=== PATIENT | female | born 1975 | race African-American/Black ===

== ENCOUNTER 2018-12-18 08:29 | Inpatient (IN) | payer OTHER ==
[2018-12-18 09:04] VITALS: BMI 19.6
--- NOTE | 2018-12-18 09:22 | HP ---
CIWA Score Nausea/Vomitin-No Nausea/No Vomiting Muscle Tremors: 1-None Visible, but [place] Anxiety: 0-No Anxiety, at Ease Agitation: 0-Normal Activity Paroxysmal Sweats: No Perspiration Orientation: 0-Oriented Tacttile Disturbances: 0-None Auditory Disturbances: 0-None Visual Disturbances: 0-None Headache: 0-None Present CIWA-Ar Total Score: 1 - Admission Criteria OASAS Guidelines: Admission for Medically Managed Detox: Requires at least one of the followin. CIWA greater than 12 2. Seizures within the past 24 hours 3. Delirium tremens within the past 24 hours 4. Hallucinations within the past 24 hours 5. Acute intervention needed for co occurring medical disorder 6. Acute intervention needed for co occurring psychiatric disorder 7. Severe withdrawal that cannot be handled at a lower level of care (continued vomiting, continued diarrhea, abnormal vital signs) requiring intravenous medication and/or fluids 8. Admitting History and Physical - Admission Chief Complaint: " I want to stop using marijuana and crack and alcohol." History of Present Illness: 43 year old black female with cocaine/crack dependence, marijuana use disorder, and alcohol use disorder. She smokes crack daily $100 every day, last use yesterday. Alcohol she does not use daily, only along with crack sometimes. She denies blackouts or withdrawal seizures. She last drank yesterday evening. Marijuana she uses twice weekly, about 1 blunt per episode, last used yesterday evening. PMH: HIV Disease, DM Med: Biktarvy daily, Metformin 1 gm BID, Basaglar insulin 25 units qsh, AdmeLOG U-100 Insurlin, 5 unit before meals. Amoxicillin she took only for while hospitalized but lost it yesterday. Naproxen 250mg BID. Nexplanon implantable contraceptive. All: Sulfur Drugs - Rash Psych: Anxiety Disorder, Depression on Lexapro, trazodone 50mg qhs, Abilify 5 mg daily. She is homeless and in retirement system. She has poor coping skills and needs structure and help. She has co-morbid disorders that complicate her recovery. She wants to be admitted for rehab. Limitations to Obtaining History: No Limitations - Past Medical History Psych: Yes: Depression, Schizophrenia - Advance Directives Advance Directives: No: Living Will, Health Care Proxy, DNR - Alcohol/Substance Use Hx Alcohol Use: No History of Substance Use: reports: Cocaine, Marijuana Date of Last Use: 12/17/18 - Social History Usual Living Arrangement: Yes: Alone Do you think of yourself as: Straight/Heterosexual ADL: Independent History of Recent Travel: No Admission [facility] Chief Complaint: " I want to stop using marijuana and crack." Allergies/Adverse Reactions: Allergies Allergy/AdvReac Type Severity Reaction Status Date / Time Sulfa (Sulfonamide Allergy Verified 12/18/18 08:55 Antibiotics) History of Present Illness: 43 year old black female with cocaine/crack dependence, marijuana use disorder, and alcohol use disorder. She smokes crack daily $100 every day, last use yesterday. Alcohol she does not use daily, only along with crack sometimes. She denies blackouts or withdrawal seizures. She last drank yesterday evening. Marijuana she uses twice weekly, about 1 blunt per episode, last used yesterday evening. PMH: HIV Disease, DM Med: Biktarvy daily, Metformin 1 gm BID, Basaglar insulin 25 units qsh, AdmeLOG U-100 Insurlin, 5 unit before meals. Amoxicillin she took only for while hospitalized but lost it yesterday. Naproxen 250mg BID. Nexplanon implantable contraceptive. All: Sulfur Drugs - Rash Psych: Anxiety Disorder, Depression on Lexapro, trazodone 50mg qhs, Abilify 5 mg daily. She is homeless and in retirement system. She has poor coping skills and needs structure and help. She has co-morbid disorders that complicate her recovery. She wants to be admitted for rehab. Exam Limitations: No Limitations - Ebola screening Have you traveled outside of the country in the last 21 days: No Have you had contact with anyone from an Ebola affected area: No Have you been sick,other than usual withdrawal symptoms: No Do you have a fever: No - Review of Systems Constitutional: Unexplained wgt Loss EENT: reports: No Symptoms Reported Respiratory: reports: No Symptoms reported Cardiac: reports: No Symptoms Reported GI: reports: No Symptoms Reported : reports: No Symptoms Reported Musculoskeletal: reports: No Symptoms Reported Integumentary: reports: No Symptoms Reported Neuro: reports: No Symptoms reported Endocrine: reports: No Symptoms Reported Hematology: reports: No Symptoms Reported Psychiatric: reports: No Sypmtoms Reported Other Systems: Reviewed and Negative Patient History - Patient Medical History Hx Anemia: No Hx Asthma: No Hx Chronic Obstructive Pulmonary Disease (COPD): No Hx Cancer: No Hx Cardiac Disorders: No Hx Congestive Heart Failure: No Hx Hypertension: No Hx Hypercholesterolemia: No Hx Pacemaker: No HX Cerebrovascular Accident: No Hx Seizures: No Hx Dementia: No Hx Diabetes: Yes Hx Gastrointestinal Disorders: No Hx Liver Disease: No Hx Genitourinary Disorders: No Hx Sexually Transmitted Disorders: No Hx Renal Disease (ESRD): No Hx Thyroid Disease: No Hx Human Immunodeficiency Virus (HIV): Yes Hx Hepatitis C: No Hx Depression: Yes Hx Bipolar Disorder: Yes Hx Schizophrenia: Yes - Patient Surgical History Past Surgical History: No - PPD History Previous Implant?: Yes Documented Results: Negative w/o proof Implanted On Prior R Admission?: No Date: 12/23/17 Results: unknown PPD to be Administered?: Yes - Reproductive History Patient is a Female of Child Bearing Age (11 -55 yrs old): Yes Patient : No - Smoking Cessation Smoking history: Current every day smoker Have you smoked in the past 12 months: Yes Aproximately how many cigarettes per day: 8 Hx Chewing Tobacco Use: Yes Initiated information on smoking cessation: Yes 'Breaking Loose' booklet given: 12/18/18 - Substances abused Alcohol Substance route: Oral Frequency: Daily Amount used: 2 cans of beer Age of first use: 12 Date of last use: 12/17/18 Crack Substance route: Smoking Frequency: Daily Amount used: $100 Age of first use: 24 Date of last use: 12/17/18 Marijuana/Hashish Substance route: Oral Frequency: Daily Amount used: $10 Age of first use: 16 Date of last use: 12/17/18 Admission Physical Exam BHS - Vital Signs Vital Signs: Vital Signs - 24 hr 12/18/18 09:00 Temperature 98.1 F Pulse Rate 107 H Respiratory 20 Rate Blood Pressure 125/88 - Physical General Appearance: Yes: No Apparent Distress HEENTM: Yes: EOMI, Hearing grossly Normal, Normal ENT Inspection, Normocephalic , Normal Voice, YOSEF, Pharynx Normal, Tm's normal Respiratory: Yes: Chest Non-Tender, Lungs Clear, Normal Breath Sounds Neck: Yes: No masses,lesions,Nodules, Supple, Trachea in good position Breast: Yes: Breast Exam Deferred Cardiology: Yes: Regular Rhythm, Regular Rate, S1, S2 Abdominal: Yes: Normal Bowel Sounds, Non Tender, Flat, Soft Genitourinary: Yes: Within Normal Limits Back: Yes: Normal Inspection Musculoskeletal: Yes: full range of Motion, Gait Steady, Pelvis Stable Extremities: Yes: Normal Capillary Refill, Normal Inspection, Normal Range of Motion, Non-Tender Neurological: Yes: street engineer II-XII NML intact, Fully Oriented, Alert, Motor Strength 5/5, Normal Mood/Affect, Normal Response Integumentary: Yes: Normal Color, Warm Lymphatic: Yes: Within Normal Limits - Diagnostic (1) Cocaine use disorder Current Visit: Yes Status: Acute (2) Cannabis use disorder, mild, abuse Current Visit: Yes Status: Acute (3) Insulin dependent diabetes mellitus Current Visit: Yes Status: Acute (4) HIV (human immunodeficiency virus infection) Current Visit: Yes Status: Acute (5) Depression Current Visit: Yes Status: Acute (6) Schizophrenia Current Visit: Yes Status: Acute (7) Abscess Current Visit: Yes Status: Acute Cleared for Admission S - Detox or Rehab [facility] Level of Care: Medically Supervised Claeared for Rehab Admission: Yes Screened but not Admitted - Documentation of Visit Screened but not Admitted: No Breathalyzer - Breathalyzer Breathalyzer: 0 Vital Signs - Vital Signs Vital signs refused: No Inpatient Rehab Admission - Rehab Decision to Admit Inpatient rehab admission?: Yes - Initial Determination Are CD services needed?: Yes Free of communicable disease: Yes Not in need of hospitalization: Yes - Rehab Admission Criteria Previous failed treatment: Yes Poor recovery environment: Yes Comorbidities: Yes Lacks judgement: Yes Patient is meeting Inpatient Rehab admission criteria:: Yes
[2018-12-18] MEDS ORDERED: MAGNESIUM HYDROX 2400MG/30ML ORAL SUSPENSION 30 ML CUP PO PRN (09:42)
[2018-12-18] MEDS ORDERED: MENTHOL/PHENOL 1 EACH UD MM PRN (09:42)
[2018-12-18] MEDS ORDERED: P-EPHED 60MG/TRIPROLIDI 2.5MG TABLET PO PRN (09:42)
[2018-12-18] MEDS ORDERED: guaiFENesin 200 MG/10 ML 10 ML UNIT-DOSE CUPS PO PRN (09:42)
[2018-12-18] MEDS ORDERED: IBUPROFEN 400 MG TABLET (FP) PO PRN (09:42)
[2018-12-18] MEDS ORDERED: MAGNESIUM CITRATE 300 ML BOTTLE PO PRN (09:42)
[2018-12-18] MEDS ORDERED: LOPERAMIDE HCL 2 MG CAPSULE PO PRN (09:42)
[2018-12-18] MEDS ORDERED: PATIENT'S OWN MEDICATION (NON-FORMULARY) (Metformin Hcl [Glucophage] 1,000 MG) PO SCH (10:00)
[2018-12-18] MEDS ORDERED: TUBERCULIN PPD 5 TU/0.1ML VIAL ID ONE (11:34)
[2018-12-18] MEDS: ARIPiprazole 5 MG TABLET (FP) PO SCH (11:39)
[2018-12-18] MEDS: PRENATAL VITAMINS W/ FOLIC ACID TABLET (FP) PO SCH (11:39)
[2018-12-18] MEDS: AMOXICILLIN 500 MG CAPSULE (FP) PO SCH ×2 (11:39→21:24)
[2018-12-18] MEDS: BICTEGRAV/EMTRICIT/TENOFOV (BIKTARVY) 50-200-25 MG TABLET PO SCH (11:39)
[2018-12-18] MEDS: HYDROCORTISONE 2.5% LOTION - 1 BOTTLE TP SCH ×2 (11:40→21:31)
[2018-12-18] MEDS: NICOTINE 7 MG/24 HOURS TOPICAL PATCH TD SCH (11:40)
[2018-12-18] MEDS: NAPROXEN 250 MG TABLET (FP) PO PRN (11:40)
[2018-12-18 11:57] LABS: HEMATOCRIT 41.4 % (32.4-45.2); HEMOGLOBIN 13.3 GM/dL (10.7-15.3); MCH 28.7 pg (25.7-33.7); MCHC 32.2 g/dl (32.0-36.0); MEAN CELL VOLUME 89.2 fl (80-96); PLATELET COUNT 341 K/MM3 (134-434); RBC 4.64 M/mm3 (3.60-5.2); RDW 13.7 % (11.6-15.6); WHITE BLOOD COUNT 7.2 K/mm3 (4.0-10.0)
[2018-12-18] MEDS: metFORMIN HCL 500 MG TABLET (FP) PO SCH ×2 (12:00→17:42)
[2018-12-18 12:21] LABS: ALBUMIN 3.2 g/dl (3.4-5.0); BILIRUBIN,TOTAL 0.5 mg/dL (0.2-1); BLOOD UREA NITROGEN 16.3 mg/dL (7-18); CREATININE 1.2 mg/dL (0.55-1.3); POTASSIUM 4.2 mmol/L (3.5-5.1); TOT PROT 7.6 g/dl (6.4-8.2)
[2018-12-18] MEDS ORDERED: INSULIN (NOVOLOG) ASPART 100 UNITS/ML 10ML VIAL SQ ONE (13:15)
[2018-12-18] MEDS ORDERED: metFORMIN HCL 500 MG TABLET (FP) PO ONE (13:15)
[2018-12-18] MEDS ORDERED: INSULIN REGULAR HUMAN 100 UNITS/ML *VIAL SQ ONE (13:15)
[2018-12-18] MEDS ORDERED: PT OWN MED DRAWER 7, Y5N ONE ×2 (14:01→21:27)
[2018-12-18] MEDS: INSULIN (NOVOLOG) ASPART 100 UNITS/ML 10ML VIAL SQ SCH (17:43)
[2018-12-18] MEDS: THIAMINE HCL 100 MG TABLET (FP) PO SCH (21:24)
[2018-12-18] MEDS ORDERED: traZODone HCL 50 MG TABLET (FP) PO SCH (22:00)
[2018-12-18] MEDS: INSULIN (LEVEMIR) 100 UNITS/ML UNITS SQ SCH (22:07)
[2018-12-19] MEDS: metFORMIN HCL 500 MG TABLET (FP) PO SCH ×2 (07:02→16:44)
[2018-12-19] MEDS: ACETAMINOPHEN 325 MG TABLET (FP) PO PRN (07:03)
[2018-12-19] MEDS: INSULIN (NOVOLOG) ASPART 100 UNITS/ML 10ML VIAL SQ SCH ×3 (08:39→16:48)
[2018-12-19] MEDS ORDERED: PT OWN MED DRAWER 7, Y5N ONE ×2 (09:24→10:53)
[2018-12-19] MEDS: BICTEGRAV/EMTRICIT/TENOFOV (BIKTARVY) 50-200-25 MG TABLET PO SCH (09:43)
[2018-12-19] MEDS: ARIPiprazole 5 MG TABLET (FP) PO SCH (09:43)
[2018-12-19] MEDS: AMOXICILLIN 500 MG CAPSULE (FP) PO SCH ×2 (09:43→21:28)
[2018-12-19] MEDS: NICOTINE 7 MG/24 HOURS TOPICAL PATCH TD SCH (09:44)
[2018-12-19] MEDS: PRENATAL VITAMINS W/ FOLIC ACID TABLET (FP) PO SCH (09:44)
[2018-12-19] MEDS: HYDROCORTISONE 2.5% LOTION - 1 BOTTLE TP SCH ×2 (09:45→21:30)
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
[2018-12-19 11:49] LABS: EPI CELLS 10.9 /HPF (0-5/HPF); HYALINE CASTS 14 /lpf (0-8); URINE APPEARANCE CLOUDY; URINE BACTERIA 99.6 /hpf (NEGATIVE); URINE BILIRUBIN NEGATIVE (NEGATIVE); URINE COLOR DK YELLOW; URINE GLUCOSE (UA) 2+ (NEGATIVE); URINE KETONE TRACE (NEGATIVE); URINE LEUK ESTERASE NEGATIVE (NEGATIVE); URINE NITRITE NEGATIVE (NEGATIVE); URINE PROTEIN 2+ (NEGATIVE); URINE RBC 1 /hpf (0-4); URINE WBC 3 /hpf (0-5)
[2018-12-19] MEDS ORDERED: INSULIN (NOVOLOG) ASPART 100 UNITS/ML 10ML VIAL ONE (12:03)
[2018-12-19] MEDS: NAPROXEN 250 MG TABLET (FP) PO PRN (15:27)
[2018-12-19] MEDS: THIAMINE HCL 100 MG TABLET (FP) PO SCH (21:28)
[2018-12-19] MEDS: INSULIN (LEVEMIR) 100 UNITS/ML UNITS SQ SCH (21:29)
[2018-12-19] MEDS: traZODone HCL 100 MG TABLET (FP) PO SCH (21:30)
[2018-12-20] MEDS: metFORMIN HCL 500 MG TABLET (FP) PO SCH ×2 (06:34→16:38)
[2018-12-20] MEDS: INSULIN (NOVOLOG) ASPART 100 UNITS/ML 10ML VIAL SQ SCH ×3 (07:41→16:38)
[2018-12-20] MEDS ORDERED: PT OWN MED DRAWER 7, Y5N ONE (08:53)
[2018-12-20] MEDS: AMOXICILLIN 500 MG CAPSULE (FP) PO SCH ×2 (09:16→21:36)
[2018-12-20] MEDS: NICOTINE 7 MG/24 HOURS TOPICAL PATCH TD SCH (09:16)
[2018-12-20] MEDS: BICTEGRAV/EMTRICIT/TENOFOV (BIKTARVY) 50-200-25 MG TABLET PO SCH (09:16)
[2018-12-20] MEDS: ARIPiprazole 5 MG TABLET (FP) PO SCH (09:16)
[2018-12-20] MEDS: PRENATAL VITAMINS W/ FOLIC ACID TABLET (FP) PO SCH (09:16)
[2018-12-20] MEDS: HYDROCORTISONE 2.5% LOTION - 1 BOTTLE TP SCH ×2 (09:17→21:40)
[2018-12-20] MEDS ORDERED: INSULIN (NOVOLOG) ASPART 100 UNITS/ML 10ML VIAL ONE (11:42)
[2018-12-20] MEDS: ACETAMINOPHEN 325 MG TABLET (FP) PO PRN (17:00)
[2018-12-20] MEDS: MAG HYDROX/AL HYDROX/SIMETH 30 ML UNIT-DOSE CUP PO PRN (17:01)
[2018-12-20] MEDS: THIAMINE HCL 100 MG TABLET (FP) PO SCH (21:36)
[2018-12-20] MEDS: traZODone HCL 100 MG TABLET (FP) PO SCH (21:36)
[2018-12-20] MEDS: INSULIN (LEVEMIR) 100 UNITS/ML UNITS SQ SCH (21:39)
[2018-12-20] MEDS ORDERED: INSULIN (LEVEMIR) 100 UNITS/ML UNITS SQ ONE (23:01)
[2018-12-21] MEDS: metFORMIN HCL 500 MG TABLET (FP) PO SCH ×2 (07:24→16:47)
[2018-12-21] MEDS: INSULIN (NOVOLOG) ASPART 100 UNITS/ML 10ML VIAL SQ SCH ×3 (07:25→16:49)
[2018-12-21] MEDS ORDERED: PT OWN MED DRAWER 7, Y5N ONE (08:58)
[2018-12-21] MEDS: ARIPiprazole 5 MG TABLET (FP) PO SCH (10:06)
[2018-12-21] MEDS: NICOTINE 7 MG/24 HOURS TOPICAL PATCH TD SCH (10:06)
[2018-12-21] MEDS: AMOXICILLIN 500 MG CAPSULE (FP) PO SCH ×2 (10:07→21:08)
[2018-12-21] MEDS: PRENATAL VITAMINS W/ FOLIC ACID TABLET (FP) PO SCH (10:07)
[2018-12-21] MEDS: BICTEGRAV/EMTRICIT/TENOFOV (BIKTARVY) 50-200-25 MG TABLET PO SCH (10:07)
[2018-12-21] MEDS: HYDROCORTISONE 2.5% LOTION - 1 BOTTLE TP SCH ×2 (10:08→21:08)
--- NOTE | 2018-12-21 11:27 | PN ---
[facility] Progress Note Note: Vital Signs Temperature 97.8 F 12/21/18 07:20 Pulse Rate 94 H 12/21/18 07:20 Respiratory Rate 18 12/21/18 07:20 Blood Pressure 113/72 12/21/18 07:20 O2 Sat by Pulse Oximetry (%) Laboratory Last Values WBC 7.2 K/mm3 (4.0-10.0) 12/18/18 10:00 RBC 4.64 M/mm3 (3.60-5.2) 12/18/18 10:00 Hgb 13.3 GM/dL (10.7-15.3) 12/18/18 10:00 Hct 41.4 % (32.4-45.2) 12/18/18 10:00 MCV 89.2 fl (80-96) 12/18/18 10:00 MCH 28.7 pg (25.7-33.7) 12/18/18 10:00 MCHC 32.2 g/dl (32.0-36.0) 12/18/18 10:00 RDW 13.7 % (11.6-15.6) 12/18/18 10:00 Plt Count 341 K/MM3 (134-434) 12/18/18 10:00 MPV 9.0 fl (7.5-11.1) 12/18/18 10:00 Sodium 132 mmol/L (136-145) L 12/18/18 10:00 Potassium 4.2 mmol/L (3.5-5.1) 12/18/18 10:00 Chloride 98 mmol/L (98-107) 12/18/18 10:00 Carbon Dioxide 27 mmol/L (21-32) 12/18/18 10:00 Anion Gap 7 MMOL/L (8-16) L 12/18/18 10:00 BUN 16.3 mg/dL (7-18) 12/18/18 10:00 Creatinine 1.2 mg/dL (0.55-1.3) 12/18/18 10:00 Est GFR (CKD-EPI)AfAm 64.10 12/18/18 10:00 Est GFR (CKD-EPI)NonAf 55.31 12/18/18 10:00 POC Glucometer 304 UNITS (80-120) 12/21/18 07:23 Random Glucose 515 mg/dL (74-106) H* 11/04/19 10:00 Calcium 9.0 mg/dL (8.5-10.1) 12/18/18 10:00 Total Bilirubin 0.5 mg/dL (0.2-1) 12/18/18 10:00 AST 18 U/L (15-37) 12/18/18 10:00 ALT 30 U/L (13-61) 12/18/18 10:00 Alkaline Phosphatase 109 U/L (45-117) 12/18/18 10:00 Total Protein 7.6 g/dl (6.4-8.2) 12/18/18 10:00 Albumin 3.2 g/dl (3.4-5.0) L 12/18/18 10:00 Urine Color Dk yellow 12/19/18 09:00 Urine Appearance Cloudy 12/19/18 09:00 Urine pH 6.0 (5.0-8.0) 12/19/18 09:00 Ur Specific [place] 1.044 (1.010-1.035) H 12/19/18 09:00 Urine Protein 2+ (NEGATIVE) H 12/19/18 09:00 Urine Glucose (UA) 2+ (NEGATIVE) H 12/19/18 09:00 Urine Ketones Trace (NEGATIVE) H 12/19/18 09:00 Urine Blood 3+ (NEGATIVE) H 12/19/18 09:00 Urine Nitrite Negative (NEGATIVE) 12/19/18 09:00 Urine Bilirubin Negative (NEGATIVE) 12/19/18 09:00 Urine Urobilinogen 1.0 mg/dL (0.2-1.0) 12/19/18 09:00 Ur Leukocyte Esterase Negative (NEGATIVE) 12/19/18 09:00 Urine WBC (Auto) 3 /hpf (0-5) 12/19/18 09:00 Urine RBC (Auto) 1 /hpf (0-4) 12/19/18 09:00 Urine Casts (Auto) 14 /lpf (0-8) 12/19/18 09:00 U Epithel Cells (Auto) 10.9 /HPF (0-5/HPF) 12/19/18 09:00 Urine Bacteria (Auto) 99.6 /hpf (NEGATIVE) 12/19/18 09:00 POC Urine HCG, Qual Negative 12/18/18 09:40 RPR Titer Nonreactive (NONREACTIVE) 12/18/18 10:00 labs reviewed, + hematuria, repeat u/a continue to monitor
[2018-12-21] MEDS ORDERED: INSULIN (NOVOLOG) ASPART 100 UNITS/ML 10ML VIAL ONE (11:51)
[2018-12-21 17:40] LABS: EPI CELLS 7.3 /HPF (0-5/HPF); HYALINE CASTS 3 /lpf (0-8); PH,URINE >= 9.0 (5.0-8.0); URINE APPEARANCE CLEAR; URINE BILIRUBIN NEGATIVE (NEGATIVE); URINE COLOR YELLOW; URINE GLUCOSE (UA) 2+ (NEGATIVE); URINE KETONE TRACE (NEGATIVE); URINE LEUK ESTERASE NEGATIVE (NEGATIVE); URINE NITRITE NEGATIVE (NEGATIVE); URINE PROTEIN 1+ (NEGATIVE); URINE RBC 3 /hpf (0-4); URINE WBC 4 /hpf (0-5)
[2018-12-21] MEDS: MAG HYDROX/AL HYDROX/SIMETH 30 ML UNIT-DOSE CUP PO PRN (18:48)
[2018-12-21] MEDS: traZODone HCL 100 MG TABLET (FP) PO SCH (21:08)
[2018-12-21] MEDS: THIAMINE HCL 100 MG TABLET (FP) PO SCH (21:10)
[2018-12-21] MEDS: INSULIN (LEVEMIR) 100 UNITS/ML UNITS SQ SCH (21:10)
[2018-12-22] MEDS: metFORMIN HCL 500 MG TABLET (FP) PO SCH ×2 (06:27→16:59)
[2018-12-22] MEDS: INSULIN (NOVOLOG) ASPART 100 UNITS/ML 10ML VIAL SQ SCH ×3 (08:29→16:59)
[2018-12-22] MEDS ORDERED: PT OWN MED DRAWER 7, Y5N ONE ×2 (08:29→12:02)
[2018-12-22] MEDS: AMOXICILLIN 500 MG CAPSULE (FP) PO SCH ×2 (09:53→21:58)
[2018-12-22] MEDS: ARIPiprazole 5 MG TABLET (FP) PO SCH (09:53)
[2018-12-22] MEDS: HYDROCORTISONE 2.5% LOTION - 1 BOTTLE TP SCH ×2 (09:53→21:58)
[2018-12-22] MEDS: BICTEGRAV/EMTRICIT/TENOFOV (BIKTARVY) 50-200-25 MG TABLET PO SCH (09:53)
[2018-12-22] MEDS: PRENATAL VITAMINS W/ FOLIC ACID TABLET (FP) PO SCH (09:53)
[2018-12-22] MEDS: NICOTINE 7 MG/24 HOURS TOPICAL PATCH TD SCH (09:54)
--- NOTE | 2018-12-22 10:58 | PN ---
[facility] Progress Note Note: Laboratory Tests 12/18/18 12/18/18 12/18/18 09:40 10:00 10:00 WBC 7.2 RBC 4.64 Hgb 13.3 Hct 41.4 MCV 89.2 MCH 28.7 MCHC 32.2 RDW 13.7 Plt Count 341 MPV 9.0 Sodium 132 L Potassium 4.2 Chloride 98 Carbon Dioxide 27 Anion Gap 7 L BUN 16.3 Creatinine 1.2 Est GFR (CKD-EPI)AfAm 64.10 Est GFR (CKD-EPI)NonAf 55.31 POC Glucometer Random Glucose 515 H* Calcium 9.0 Total Bilirubin 0.5 AST 18 ALT 30 Alkaline Phosphatase 109 Total Protein 7.6 Albumin 3.2 L Urine Color Urine Appearance Urine pH Ur Specific [place] Urine Protein Urine Glucose (UA) Urine Ketones Urine Blood Urine Nitrite Urine Bilirubin Urine Urobilinogen Ur Leukocyte Esterase Urine WBC (Auto) Urine RBC (Auto) Urine Casts (Auto) U Epithel Cells (Auto) Urine Bacteria (Auto) POC Urine HCG, Qual Negative RPR Titer 12/18/18 12/18/18 12/18/18 10:00 10:03 11:38 WBC RBC Hgb Hct MCV MCH MCHC RDW Plt Count MPV Sodium Potassium Chloride Carbon Dioxide Anion Gap BUN Creatinine Est GFR (CKD-EPI)AfAm Est GFR (CKD-EPI)NonAf POC Glucometer 539 > 600 Random Glucose Calcium Total Bilirubin AST ALT Alkaline Phosphatase Total Protein Albumin Urine Color Urine Appearance Urine pH Ur Specific [place] Urine Protein Urine Glucose (UA) Urine Ketones Urine Blood Urine Nitrite Urine Bilirubin Urine Urobilinogen Ur Leukocyte Esterase Urine WBC (Auto) Urine RBC (Auto) Urine Casts (Auto) U Epithel Cells (Auto) Urine Bacteria (Auto) POC Urine HCG, Qual RPR Titer Nonreactive 12/18/18 12/18/18 12/19/18 16:38 21:30 07:01 WBC RBC Hgb Hct MCV MCH MCHC RDW Plt Count MPV Sodium Potassium Chloride Carbon Dioxide Anion Gap BUN Creatinine Est GFR (CKD-EPI)AfAm Est GFR (CKD-EPI)NonAf POC Glucometer 91 [phone] Random Glucose Calcium Total Bilirubin AST ALT Alkaline Phosphatase Total Protein Albumin Urine Color Urine Appearance Urine pH Ur Specific [place] Urine Protein Urine Glucose (UA) Urine Ketones Urine Blood Urine Nitrite Urine Bilirubin Urine Urobilinogen Ur Leukocyte Esterase Urine WBC (Auto) Urine RBC (Auto) Urine Casts (Auto) U Epithel Cells (Auto) Urine Bacteria (Auto) POC Urine HCG, Qual RPR Titer 12/19/18 12/19/18 12/19/18 09:00 11:55 16:43 WBC RBC Hgb Hct MCV MCH MCHC RDW Plt Count MPV Sodium Potassium Chloride Carbon Dioxide Anion Gap BUN Creatinine Est GFR (CKD-EPI)AfAm Est GFR (CKD-EPI)NonAf POC Glucometer 203 207 Random Glucose Calcium Total Bilirubin AST ALT Alkaline Phosphatase Total Protein Albumin Urine Color Dk yellow Urine Appearance Cloudy Urine pH 6.0 Ur Specific [place] 1.044 H Urine Protein 2+ H Urine Glucose (UA) 2+ H Urine Ketones Trace H Urine Blood 3+ H Urine Nitrite Negative Urine Bilirubin Negative Urine Urobilinogen 1.0 Ur Leukocyte Esterase Negative Urine WBC (Auto) 3 Urine RBC (Auto) 1 Urine Casts (Auto) 14 U Epithel Cells (Auto) 10.9 Urine Bacteria (Auto) 99.6 POC Urine HCG, Qual RPR Titer 12/19/18 12/20/18 12/20/18 21:27 06:33 11:17 WBC RBC Hgb Hct MCV MCH MCHC RDW Plt Count MPV Sodium Potassium Chloride Carbon Dioxide Anion Gap BUN Creatinine Est GFR (CKD-EPI)AfAm Est GFR (CKD-EPI)NonAf POC Glucometer 205 175 260 Random Glucose Calcium Total Bilirubin AST ALT Alkaline Phosphatase Total Protein Albumin Urine Color Urine Appearance Urine pH Ur Specific [place] Urine Protein Urine Glucose (UA) Urine Ketones Urine Blood Urine Nitrite Urine Bilirubin Urine Urobilinogen Ur Leukocyte Esterase Urine WBC (Auto) Urine RBC (Auto) Urine Casts (Auto) U Epithel Cells (Auto) Urine Bacteria (Auto) POC Urine HCG, Qual RPR Titer 12/20/18 12/20/18 12/21/18 16:37 21:38 07:23 WBC RBC Hgb Hct MCV MCH MCHC RDW Plt Count MPV Sodium Potassium Chloride Carbon Dioxide Anion Gap BUN Creatinine Est GFR (CKD-EPI)AfAm Est GFR (CKD-EPI)NonAf POC Glucometer [phone] Random Glucose Calcium Total Bilirubin AST ALT Alkaline Phosphatase Total Protein Albumin Urine Color Urine Appearance Urine pH Ur Specific [place] Urine Protein Urine Glucose (UA) Urine Ketones Urine Blood Urine Nitrite Urine Bilirubin Urine Urobilinogen Ur Leukocyte Esterase Urine WBC (Auto) Urine RBC (Auto) Urine Casts (Auto) U Epithel Cells (Auto) Urine Bacteria (Auto) POC Urine HCG, Qual RPR Titer 12/21/18 12/21/18 12/21/18 11:49 12:50 16:46 WBC RBC Hgb Hct MCV MCH MCHC RDW Plt Count MPV Sodium Potassium Chloride Carbon Dioxide Anion Gap BUN Creatinine Est GFR (CKD-EPI)AfAm Est GFR (CKD-EPI)NonAf POC Glucometer 227 249 Random Glucose Calcium Total Bilirubin AST ALT Alkaline Phosphatase Total Protein Albumin Urine Color Yellow Urine Appearance Clear Urine pH >= 9.0 H D Ur Specific [place] 1.039 H Urine Protein 1+ H Urine Glucose (UA) 2+ H Urine Ketones Trace H Urine Blood Negative Urine Nitrite Negative Urine Bilirubin Negative Urine Urobilinogen 1.0 Ur Leukocyte Esterase Negative Urine WBC (Auto) 4 Urine RBC (Auto) 3 Urine Casts (Auto) 3 U Epithel Cells (Auto) 7.3 Urine Bacteria (Auto) 191.0 POC Urine HCG, Qual RPR Titer 12/21/18 12/22/18 21:08 06:25 WBC RBC Hgb Hct MCV MCH MCHC RDW Plt Count MPV Sodium Potassium Chloride Carbon Dioxide Anion Gap BUN Creatinine Est GFR (CKD-EPI)AfAm Est GFR (CKD-EPI)NonAf POC Glucometer 172 102 Random Glucose Calcium Total Bilirubin AST ALT Alkaline Phosphatase Total Protein Albumin Urine Color Urine Appearance Urine pH Ur Specific [place] Urine Protein Urine Glucose (UA) Urine Ketones Urine Blood Urine Nitrite Urine Bilirubin Urine Urobilinogen Ur Leukocyte Esterase Urine WBC (Auto) Urine RBC (Auto) Urine Casts (Auto) U Epithel Cells (Auto) Urine Bacteria (Auto) POC Urine HCG, Qual RPR Titer Repeat UA for follow up hematuria, results negative.
[2018-12-22] MEDS ORDERED: INSULIN (NOVOLOG) ASPART 100 UNITS/ML 10ML VIAL ONE (16:50)
[2018-12-22] MEDS: hydrOXYzine PAMOATE 25 MG CAPSULE (FP) PO PRN (19:32)
[2018-12-22] MEDS: traZODone HCL 100 MG TABLET (FP) PO SCH (21:58)
[2018-12-22] MEDS: THIAMINE HCL 100 MG TABLET (FP) PO SCH (21:58)
[2018-12-22] MEDS: MELATONIN 5 MG TABLETS PO PRN (21:58)
[2018-12-22] MEDS: INSULIN (LEVEMIR) 100 UNITS/ML UNITS SQ SCH (22:24)
[2018-12-23] MEDS: metFORMIN HCL 500 MG TABLET (FP) PO SCH ×2 (07:02→16:50)
[2018-12-23] MEDS: INSULIN (NOVOLOG) ASPART 100 UNITS/ML 10ML VIAL SQ SCH ×3 (07:53→16:51)
[2018-12-23] MEDS ORDERED: PT OWN MED DRAWER 7, Y5N ONE ×3 (09:18→12:00)
[2018-12-23] MEDS: AMOXICILLIN 500 MG CAPSULE (FP) PO SCH ×2 (10:12→21:09)
[2018-12-23] MEDS: PRENATAL VITAMINS W/ FOLIC ACID TABLET (FP) PO SCH (10:12)
[2018-12-23] MEDS: NICOTINE 7 MG/24 HOURS TOPICAL PATCH TD SCH (10:12)
[2018-12-23] MEDS: BICTEGRAV/EMTRICIT/TENOFOV (BIKTARVY) 50-200-25 MG TABLET PO SCH (10:12)
[2018-12-23] MEDS: HYDROCORTISONE 2.5% LOTION - 1 BOTTLE TP SCH ×2 (10:13→21:14)
[2018-12-23] MEDS: ARIPiprazole 5 MG TABLET (FP) PO SCH (11:15)
[2018-12-23] MEDS: hydrOXYzine PAMOATE 25 MG CAPSULE (FP) PO PRN ×2 (11:58→17:53)
[2018-12-23] MEDS: THIAMINE HCL 100 MG TABLET (FP) PO SCH (21:09)
[2018-12-23] MEDS: traZODone HCL 100 MG TABLET (FP) PO SCH (21:09)
[2018-12-23] MEDS: INSULIN (LEVEMIR) 100 UNITS/ML UNITS SQ SCH (21:10)
[2018-12-23] MEDS: MELATONIN 5 MG TABLETS PO PRN (21:13)
[2018-12-24] MEDS: metFORMIN HCL 500 MG TABLET (FP) PO SCH ×2 (06:55→16:35)
[2018-12-24] MEDS: INSULIN (NOVOLOG) ASPART 100 UNITS/ML 10ML VIAL SQ SCH ×3 (07:52→16:34)
[2018-12-24] MEDS: hydrOXYzine PAMOATE 25 MG CAPSULE (FP) PO PRN ×2 (09:29→21:11)
[2018-12-24] MEDS: PRENATAL VITAMINS W/ FOLIC ACID TABLET (FP) PO SCH (09:29)
[2018-12-24] MEDS: NICOTINE 7 MG/24 HOURS TOPICAL PATCH TD SCH (09:29)
[2018-12-24] MEDS: AMOXICILLIN 500 MG CAPSULE (FP) PO SCH ×2 (09:29→21:11)
[2018-12-24] MEDS: ARIPiprazole 5 MG TABLET (FP) PO SCH (09:29)
[2018-12-24] MEDS: BICTEGRAV/EMTRICIT/TENOFOV (BIKTARVY) 50-200-25 MG TABLET PO SCH (09:30)
[2018-12-24] MEDS: HYDROCORTISONE 2.5% LOTION - 1 BOTTLE TP SCH ×2 (09:32→21:12)
[2018-12-24] MEDS ORDERED: INSULIN (NOVOLOG) ASPART 100 UNITS/ML 10ML VIAL ONE (16:33)
[2018-12-24] MEDS: THIAMINE HCL 100 MG TABLET (FP) PO SCH (21:11)
[2018-12-24] MEDS: traZODone HCL 100 MG TABLET (FP) PO SCH (21:11)
[2018-12-24] MEDS: INSULIN (LEVEMIR) 100 UNITS/ML UNITS SQ SCH (21:12)
[2018-12-24] MEDS: MAG HYDROX/AL HYDROX/SIMETH 30 ML UNIT-DOSE CUP PO PRN (21:16)
[2018-12-25] MEDS: metFORMIN HCL 500 MG TABLET (FP) PO SCH ×2 (06:58→16:45)
[2018-12-25] MEDS: INSULIN (NOVOLOG) ASPART 100 UNITS/ML 10ML VIAL SQ SCH ×3 (07:48→16:47)
[2018-12-25] MEDS ORDERED: INSULIN (NOVOLOG) ASPART 100 UNITS/ML 10ML VIAL ONE (07:50)
[2018-12-25] MEDS ORDERED: PT OWN MED DRAWER 7, Y5N ONE (09:08)
[2018-12-25] MEDS: PRENATAL VITAMINS W/ FOLIC ACID TABLET (FP) PO SCH (09:37)
[2018-12-25] MEDS: BICTEGRAV/EMTRICIT/TENOFOV (BIKTARVY) 50-200-25 MG TABLET PO SCH (09:37)
[2018-12-25] MEDS: ARIPiprazole 5 MG TABLET (FP) PO SCH (09:37)
[2018-12-25] MEDS: HYDROCORTISONE 2.5% LOTION - 1 BOTTLE TP SCH ×2 (09:39→21:11)
[2018-12-25] MEDS: NICOTINE 7 MG/24 HOURS TOPICAL PATCH TD SCH (10:08)
[2018-12-25] MEDS ORDERED: NICOTINE POLACRILEX 2 MG GUM BUC PRN (12:38)
--- NOTE | 2018-12-25 12:45 | PN ---
[facility] Progress Note Note: Pt c/o Heartburn and takes Nexium at home per nurse report. Also requesting psych re-evaluation for medication review/Anxiety. Pt requesting nicotine gum. C /o hard stool and wants stool softener. Vital Signs - 24 hr 12/25/18 12/25/18 12/25/18 00:30 03:30 07:33 Temperature 97.6 F Pulse Rate 93 H Respiratory 17 18 18 Rate Blood Pressure 109/68 Laboratory Tests 12/18/18 12/18/18 12/18/18 09:40 10:00 10:00 WBC 7.2 RBC 4.64 Hgb 13.3 Hct 41.4 MCV 89.2 MCH 28.7 MCHC 32.2 RDW 13.7 Plt Count 341 MPV 9.0 Sodium 132 L Potassium 4.2 Chloride 98 Carbon Dioxide 27 Anion Gap 7 L BUN 16.3 Creatinine 1.2 Est GFR (CKD-EPI)AfAm 64.10 Est GFR (CKD-EPI)NonAf 55.31 POC Glucometer Random Glucose 515 H* Calcium 9.0 Total Bilirubin 0.5 AST 18 ALT 30 Alkaline Phosphatase 109 Total Protein 7.6 Albumin 3.2 L Urine Color Urine Appearance Urine pH Ur Specific [place] Urine Protein Urine Glucose (UA) Urine Ketones Urine Blood Urine Nitrite Urine Bilirubin Urine Urobilinogen Ur Leukocyte Esterase Urine WBC (Auto) Urine RBC (Auto) Urine Casts (Auto) U Epithel Cells (Auto) Urine Bacteria (Auto) POC Urine HCG, Qual Negative RPR Titer 12/18/18 12/18/18 12/18/18 10:00 10:03 11:38 WBC RBC Hgb Hct MCV MCH MCHC RDW Plt Count MPV Sodium Potassium Chloride Carbon Dioxide Anion Gap BUN Creatinine Est GFR (CKD-EPI)AfAm Est GFR (CKD-EPI)NonAf POC Glucometer 539 > 600 Random Glucose Calcium Total Bilirubin AST ALT Alkaline Phosphatase Total Protein Albumin Urine Color Urine Appearance Urine pH Ur Specific [place] Urine Protein Urine Glucose (UA) Urine Ketones Urine Blood Urine Nitrite Urine Bilirubin Urine Urobilinogen Ur Leukocyte Esterase Urine WBC (Auto) Urine RBC (Auto) Urine Casts (Auto) U Epithel Cells (Auto) Urine Bacteria (Auto) POC Urine HCG, Qual RPR Titer Nonreactive 12/18/18 12/18/18 12/19/18 16:38 21:30 07:01 WBC RBC Hgb Hct MCV MCH MCHC RDW Plt Count MPV Sodium Potassium Chloride Carbon Dioxide Anion Gap BUN Creatinine Est GFR (CKD-EPI)AfAm Est GFR (CKD-EPI)NonAf POC Glucometer 91 [phone] Random Glucose Calcium Total Bilirubin AST ALT Alkaline Phosphatase Total Protein Albumin Urine Color Urine Appearance Urine pH Ur Specific [place] Urine Protein Urine Glucose (UA) Urine Ketones Urine Blood Urine Nitrite Urine Bilirubin Urine Urobilinogen Ur Leukocyte Esterase Urine WBC (Auto) Urine RBC (Auto) Urine Casts (Auto) U Epithel Cells (Auto) Urine Bacteria (Auto) POC Urine HCG, Qual RPR Titer 12/19/18 12/19/18 12/19/18 09:00 11:55 16:43 WBC RBC Hgb Hct MCV MCH MCHC RDW Plt Count MPV Sodium Potassium Chloride Carbon Dioxide Anion Gap BUN Creatinine Est GFR (CKD-EPI)AfAm Est GFR (CKD-EPI)NonAf POC Glucometer 203 207 Random Glucose Calcium Total Bilirubin AST ALT Alkaline Phosphatase Total Protein Albumin Urine Color Dk yellow Urine Appearance Cloudy Urine pH 6.0 Ur Specific [place] 1.044 H Urine Protein 2+ H Urine Glucose (UA) 2+ H Urine Ketones Trace H Urine Blood 3+ H Urine Nitrite Negative Urine Bilirubin Negative Urine Urobilinogen 1.0 Ur Leukocyte Esterase Negative Urine WBC (Auto) 3 Urine RBC (Auto) 1 Urine Casts (Auto) 14 U Epithel Cells (Auto) 10.9 Urine Bacteria (Auto) 99.6 POC Urine HCG, Qual RPR Titer 12/19/18 12/20/18 12/20/18 21:27 06:33 11:17 WBC RBC Hgb Hct MCV MCH MCHC RDW Plt Count MPV Sodium Potassium Chloride Carbon Dioxide Anion Gap BUN Creatinine Est GFR (CKD-EPI)AfAm Est GFR (CKD-EPI)NonAf POC Glucometer [phone] Random Glucose Calcium Total Bilirubin AST ALT Alkaline Phosphatase Total Protein Albumin Urine Color Urine Appearance Urine pH Ur Specific [place] Urine Protein Urine Glucose (UA) Urine Ketones Urine Blood Urine Nitrite Urine Bilirubin Urine Urobilinogen Ur Leukocyte Esterase Urine WBC (Auto) Urine RBC (Auto) Urine Casts (Auto) U Epithel Cells (Auto) Urine Bacteria (Auto) POC Urine HCG, Qual RPR Titer 12/20/18 12/20/18 12/21/18 16:37 21:38 07:23 WBC RBC Hgb Hct MCV MCH MCHC RDW Plt Count MPV Sodium Potassium Chloride Carbon Dioxide Anion Gap BUN Creatinine Est GFR (CKD-EPI)AfAm Est GFR (CKD-EPI)NonAf POC Glucometer [phone] Random Glucose Calcium Total Bilirubin AST ALT Alkaline Phosphatase Total Protein Albumin Urine Color Urine Appearance Urine pH Ur Specific [place] Urine Protein Urine Glucose (UA) Urine Ketones Urine Blood Urine Nitrite Urine Bilirubin Urine Urobilinogen Ur Leukocyte Esterase Urine WBC (Auto) Urine RBC (Auto) Urine Casts (Auto) U Epithel Cells (Auto) Urine Bacteria (Auto) POC Urine HCG, Qual RPR Titer 12/21/18 12/21/18 12/21/18 11:49 12:50 16:46 WBC RBC Hgb Hct MCV MCH MCHC RDW Plt Count MPV Sodium Potassium Chloride Carbon Dioxide Anion Gap BUN Creatinine Est GFR (CKD-EPI)AfAm Est GFR (CKD-EPI)NonAf POC Glucometer 227 249 Random Glucose Calcium Total Bilirubin AST ALT Alkaline Phosphatase Total Protein Albumin Urine Color Yellow Urine Appearance Clear Urine pH >= 9.0 H D Ur Specific [place] 1.039 H Urine Protein 1+ H Urine Glucose (UA) 2+ H Urine Ketones Trace H Urine Blood Negative Urine Nitrite Negative Urine Bilirubin Negative Urine Urobilinogen 1.0 Ur Leukocyte Esterase Negative Urine WBC (Auto) 4 Urine RBC (Auto) 3 Urine Casts (Auto) 3 U Epithel Cells (Auto) 7.3 Urine Bacteria (Auto) 191.0 POC Urine HCG, Qual RPR Titer 12/21/18 12/22/18 12/22/18 21:08 06:25 11:54 WBC RBC Hgb Hct MCV MCH MCHC RDW Plt Count MPV Sodium Potassium Chloride Carbon Dioxide Anion Gap BUN Creatinine Est GFR (CKD-EPI)AfAm Est GFR (CKD-EPI)NonAf POC Glucometer [phone] Random Glucose Calcium Total Bilirubin AST ALT Alkaline Phosphatase Total Protein Albumin Urine Color Urine Appearance Urine pH Ur Specific [place] Urine Protein Urine Glucose (UA) Urine Ketones Urine Blood Urine Nitrite Urine Bilirubin Urine Urobilinogen Ur Leukocyte Esterase Urine WBC (Auto) Urine RBC (Auto) Urine Casts (Auto) U Epithel Cells (Auto) Urine Bacteria (Auto) POC Urine HCG, Qual RPR Titer 12/22/18 12/22/18 12/23/18 16:39 21:26 07:00 WBC RBC Hgb Hct MCV MCH MCHC RDW Plt Count MPV Sodium Potassium Chloride Carbon Dioxide Anion Gap BUN Creatinine Est GFR (CKD-EPI)AfAm Est GFR (CKD-EPI)NonAf POC Glucometer [phone] Random Glucose Calcium Total Bilirubin AST ALT Alkaline Phosphatase Total Protein Albumin Urine Color Urine Appearance Urine pH Ur Specific [place] Urine Protein Urine Glucose (UA) Urine Ketones Urine Blood Urine Nitrite Urine Bilirubin Urine Urobilinogen Ur Leukocyte Esterase Urine WBC (Auto) Urine RBC (Auto) Urine Casts (Auto) U Epithel Cells (Auto) Urine Bacteria (Auto) POC Urine HCG, Qual RPR Titer 12/23/18 12/23/18 12/23/18 11:54 16:48 21:09 WBC RBC Hgb Hct MCV MCH MCHC RDW Plt Count MPV Sodium Potassium Chloride Carbon Dioxide Anion Gap BUN Creatinine Est GFR (CKD-EPI)AfAm Est GFR (CKD-EPI)NonAf POC Glucometer [phone] Random Glucose Calcium Total Bilirubin AST ALT Alkaline Phosphatase Total Protein Albumin Urine Color Urine Appearance Urine pH Ur Specific [place] Urine Protein Urine Glucose (UA) Urine Ketones Urine Blood Urine Nitrite Urine Bilirubin Urine Urobilinogen Ur Leukocyte Esterase Urine WBC (Auto) Urine RBC (Auto) Urine Casts (Auto) U Epithel Cells (Auto) Urine Bacteria (Auto) POC Urine HCG, Qual RPR Titer 12/24/18 12/24/18 12/24/18 06:54 11:26 16:33 WBC RBC Hgb Hct MCV MCH MCHC RDW Plt Count MPV Sodium Potassium Chloride Carbon Dioxide Anion Gap BUN Creatinine Est GFR (CKD-EPI)AfAm Est GFR (CKD-EPI)NonAf POC Glucometer [phone] Random Glucose Calcium Total Bilirubin AST ALT Alkaline Phosphatase Total Protein Albumin Urine Color Urine Appearance Urine pH Ur Specific [place] Urine Protein Urine Glucose (UA) Urine Ketones Urine Blood Urine Nitrite Urine Bilirubin Urine Urobilinogen Ur Leukocyte Esterase Urine WBC (Auto) Urine RBC (Auto) Urine Casts (Auto) U Epithel Cells (Auto) Urine Bacteria (Auto) POC Urine HCG, Qual RPR Titer 12/24/18 12/25/18 12/25/18 21:13 06:57 11:36 WBC RBC Hgb Hct MCV MCH MCHC RDW Plt Count MPV Sodium Potassium Chloride Carbon Dioxide Anion Gap BUN Creatinine Est GFR (CKD-EPI)AfAm Est GFR (CKD-EPI)NonAf POC Glucometer [phone] Random Glucose Calcium Total Bilirubin AST ALT Alkaline Phosphatase Total Protein Albumin Urine Color Urine Appearance Urine pH Ur Specific [place] Urine Protein Urine Glucose (UA) Urine Ketones Urine Blood Urine Nitrite Urine Bilirubin Urine Urobilinogen Ur Leukocyte Esterase Urine WBC (Auto) Urine RBC (Auto) Urine Casts (Auto) U Epithel Cells (Auto) Urine Bacteria (Auto) POC Urine HCG, Qual RPR Titer Lab results, UA repeat noted. A/P GERD Psych Hx(on meds) Nicotine dependence Nicotine gum 2 mg prn as requested Pepcid 10 mg po BID colace 100 mg po bid Psych consult for re-eval/med review.
[2018-12-25] MEDS: hydrOXYzine PAMOATE 25 MG CAPSULE (FP) PO PRN ×2 (14:55→21:10)
[2018-12-25] MEDS: INSULIN (LEVEMIR) 100 UNITS/ML UNITS SQ SCH (21:09)
[2018-12-25] MEDS: traZODone HCL 100 MG TABLET (FP) PO SCH (21:10)
[2018-12-25] MEDS: THIAMINE HCL 100 MG TABLET (FP) PO SCH (21:10)
[2018-12-25] MEDS: MELATONIN 5 MG TABLETS PO PRN (21:11)
[2018-12-25] MEDS: DOCUSATE SODIUM 100 MG CAPSULE (FP) PO SCH (21:12)
[2018-12-25] MEDS: FAMOTIDINE 10 MG TABLET PO SCH (21:13)
[2018-12-26] MEDS: metFORMIN HCL 500 MG TABLET (FP) PO SCH ×2 (06:37→17:26)
[2018-12-26] MEDS: INSULIN (NOVOLOG) ASPART 100 UNITS/ML 10ML VIAL SQ SCH ×3 (07:45→17:25)
[2018-12-26] MEDS ORDERED: PT OWN MED DRAWER 7, Y5N ONE (09:09)
--- NOTE | 2018-12-26 10:17 | PN ---
Psychiatric Progress Note Vital Signs: Vital Signs Period Temp Pulse Resp BP Sys/Lock Pulse Ox Last 24 Hr 97.8 F 89 16-18 104/70 Date of Session: 12/26/18 Chief Complaint:: " I feel restless, anxious, and can't settle down." HPI: Patient admitted to for alcohol, marijuana, and cocaine dependence. Patient reports feeling restless and difficulty sleeping. ROS: Patient is coherent, alert + oriented X3. Current Medications: Active Medications Generic Name Dose Route Start Last Admin Trade Name Freq PRN Reason Stop Dose Admin Acetaminophen 650 mg 12/18/18 09:42 12/20/18 17:00 Tylenol - PO 650 mg Q4H PRN Administration FEVER Al Hydroxide/Mg Hydroxide 30 ml 12/18/18 09:42 12/24/18 21:16 Mylanta Oral Suspension - PO 30 ml Q6H PRN Administration DYSPEPSIA Aripiprazole 5 mg 12/18/18 10:00 12/25/18 09:37 Abilify PO 5 mg DAILY ALBAN Administration Bictegravir/Emtricitabine/Tenofovir 1 each 12/18/18 10:00 12/25/18 09:37 Biktarvy 50-200-25 Mg Tablet PO 1 each DAILY ALBAN Administration Docusate Sodium 100 mg 12/25/18 22:00 12/25/18 21:12 Colace - PO 100 mg BID ALBAN Administration Eucalyptus/Menthol/Phenol/Sorbitol 1 each 12/18/18 09:42 Cepastat Lozenge - MM Q4H PRN SORE THROAT Famotidine 10 mg 12/25/18 22:00 12/25/18 21:13 Acid Boat Oar Maker PO 10 mg BID ALBAN Administration Guaifenesin 10 ml 12/18/18 09:42 Robitussin - PO Q6H PRN COUGH Hydrocortisone 1 applic 12/18/18 10:00 12/25/18 21:11 Hytone 2.5% Lotion - TP Not Given BID ALBAN Hydroxyzine Pamoate 25 mg 12/22/18 18:55 12/25/18 21:10 Vistaril - PO 25 mg Q4H PRN Administration FOR ITCHING Ibuprofen 400 mg 12/18/18 09:42 12/18/18 21:26 Motrin - PO 400 mg Q6H PRN Administration Pain level 4-6 Insulin Aspart 5 units 12/18/18 16:30 12/26/18 07:45 Novolog Vial SQ 5 units TIDAC ALBAN Administration Insulin Detemir 25 units 12/18/18 22:00 12/25/18 21:09 Levemir Vial SQ 25 units HS ALBAN Administration Loperamide HCl 4 mg 12/18/18 09:42 Imodium - PO Q6H PRN DIARRHEA Magnesium Citrate 300 ml 12/18/18 09:42 Citroma - PO Q48H PRN CONSTIPATION Magnesium Hydroxide 30 ml 12/18/18 09:42 Milk Of Magnesia - PO DAILY PRN CONSTIPATION Melatonin 5 mg 12/18/18 22:00 12/25/18 21:11 Melatonin PO 5 mg HS PRN Administration INSOMNIA Metformin HCl 1,000 mg 12/18/18 10:00 12/26/18 06:37 Glucophage - PO 1,000 mg BID@0700,1630 ALBAN Administration Naproxen 250 mg 12/18/18 09:43 12/19/18 15:27 Naprosyn - PO 250 mg BID PRN Administration PAIN Nicotine 7 mg 12/18/18 10:00 12/25/18 10:08 Nicoderm Patch - TD 7 mg DAILY ALBAN Administration Nicotine Polacrilex 2 mg 12/25/18 12:38 Nicorette Gum - BUC Q2H PRN NICOTINE REPLACEMENT RX Multivit/Folic Acid/Iron 1 tab 12/18/18 10:00 12/25/18 09:37 Vitamins (Sjr) - PO 1 tab DAILY ALBAN Administration Pseudoephedrine/Triprolidine 1 combo 12/18/18 09:42 Actifed - PO TID PRN NASAL CONGESTION Thiamine HCl 100 mg 12/18/18 22:00 12/25/18 21:10 Vitamin B1 - PO 100 mg HS ALBAN Administration Trazodone HCl 100 mg 12/19/18 22:00 12/25/18 21:10 Desyrel - PO 100 mg HS ALBAN Administration Medication(s) Change(s): Yes. Current Side Effect: No Lab tests ordered: No Lab tests reviewed: Yes Provider note:: Patient complaining of restlessness, anxiety, and the inabilty to remain still. Symptoms may be occuring secondary to the abilify 5mg. Ms. Flanagan reports most recently accepting abilify 5mg three months before admission to rehab. Patient also complaining of difficulty sleeping despite accepting trazodone 100mg HS. Patient reports stable mood. Will d/c abilify 5mg (ordered by Dr. Brooks) + Trazodone 100mg HS. Will order Abilify 2mg daily + Trazodone 150mg HS. Patient educated on the importance of proper sleep hygiene. Benefits and side effects discussed. Verbal given. Mental Status Exam - Mental Status Exam Alert and Oriented to: Time, Place, Person Cognitive Function: Good Patient Appearance: Well Groomed Mood: Anxious Affect: Appropriate Patient Behavior: Cooperative Speech Pattern: Appropriate Voice Loudness: Moderately Soft/Quiet Thought Process: Goal Oriented Thought Disorder: Not Present Hallucinations: Denies Suicidal Ideation: Denies Homicidal Ideation: Denies Insight/Judgement: Fair Sleep: Poorly Appetite: Fair Muscle strength/Tone: Normal Gait/Station: Normal Psychiatric Treatment Plan - Problem List (1) Cannabis use disorder, mild, abuse Current Visit: Yes (2) Cocaine use disorder Current Visit: Yes (3) Mood disorder Current Visit: Yes (4) Substance induced mood disorder Current Visit: Yes (5) Substance-induced sleep disorder Current Visit: Yes
[2018-12-26] MEDS: NICOTINE 7 MG/24 HOURS TOPICAL PATCH TD SCH (10:24)
[2018-12-26] MEDS: ARIPiprazole 5 MG TABLET (FP) PO SCH (10:24)
[2018-12-26] MEDS: DOCUSATE SODIUM 100 MG CAPSULE (FP) PO SCH ×2 (10:24→21:21)
[2018-12-26] MEDS: FAMOTIDINE 10 MG TABLET PO SCH ×2 (10:25→21:21)
[2018-12-26] MEDS: PRENATAL VITAMINS W/ FOLIC ACID TABLET (FP) PO SCH (10:25)
[2018-12-26] MEDS: BICTEGRAV/EMTRICIT/TENOFOV (BIKTARVY) 50-200-25 MG TABLET PO SCH (10:25)
[2018-12-26] MEDS: HYDROCORTISONE 2.5% LOTION - 1 BOTTLE TP SCH ×2 (10:25→21:23)
[2018-12-26] MEDS ORDERED: ARIPiprazole 2 MG TABLET PO ONE (12:33)
[2018-12-26] MEDS: THIAMINE HCL 100 MG TABLET (FP) PO SCH (21:21)
[2018-12-26] MEDS: INSULIN (LEVEMIR) 100 UNITS/ML UNITS SQ SCH (21:21)
[2018-12-26] MEDS: traZODone HCL 50 MG TABLET (FP) PO SCH (21:23)
[2018-12-27] MEDS: metFORMIN HCL 500 MG TABLET (FP) PO SCH ×2 (06:54→16:48)
[2018-12-27] MEDS: INSULIN (NOVOLOG) ASPART 100 UNITS/ML 10ML VIAL SQ SCH ×3 (07:32→16:48)
[2018-12-27] MEDS: ARIPiprazole 2 MG TABLET PO SCH (09:56)
[2018-12-27] MEDS: FAMOTIDINE 10 MG TABLET PO SCH ×2 (09:56→21:42)
[2018-12-27] MEDS: PRENATAL VITAMINS W/ FOLIC ACID TABLET (FP) PO SCH (09:57)
[2018-12-27] MEDS: BICTEGRAV/EMTRICIT/TENOFOV (BIKTARVY) 50-200-25 MG TABLET PO SCH (09:57)
[2018-12-27] MEDS: DOCUSATE SODIUM 100 MG CAPSULE (FP) PO SCH ×2 (09:57→21:42)
[2018-12-27] MEDS: HYDROCORTISONE 2.5% LOTION - 1 BOTTLE TP SCH ×2 (09:58→21:41)
[2018-12-27] MEDS: NICOTINE 7 MG/24 HOURS TOPICAL PATCH TD SCH (09:58)
[2018-12-27] MEDS ORDERED: ARIPiprazole 2 MG TABLET PO ONE (11:45)
[2018-12-27] MEDS ORDERED: INSULIN (NOVOLOG) ASPART 100 UNITS/ML 10ML VIAL ONE (16:44)
[2018-12-27] MEDS: MELATONIN 5 MG TABLETS PO PRN (21:39)
[2018-12-27] MEDS: INSULIN (LEVEMIR) 100 UNITS/ML UNITS SQ SCH (21:39)
[2018-12-27] MEDS: THIAMINE HCL 100 MG TABLET (FP) PO SCH (21:39)
[2018-12-27] MEDS: traZODone HCL 50 MG TABLET (FP) PO SCH (21:42)
[2018-12-28] MEDS: metFORMIN HCL 500 MG TABLET (FP) PO SCH ×2 (06:43→17:04)
[2018-12-28] MEDS: INSULIN (NOVOLOG) ASPART 100 UNITS/ML 10ML VIAL SQ SCH ×3 (07:43→17:05)
[2018-12-28] MEDS ORDERED: PT OWN MED DRAWER 7, Y5N ONE ×2 (08:27→10:17)
[2018-12-28] MEDS: COLLOIDAL OATMEAL 1 BAR EACH TP PRN (10:11)
[2018-12-28] MEDS: PRENATAL VITAMINS W/ FOLIC ACID TABLET (FP) PO SCH (10:12)
[2018-12-28] MEDS: BICTEGRAV/EMTRICIT/TENOFOV (BIKTARVY) 50-200-25 MG TABLET PO SCH (10:12)
[2018-12-28] MEDS: FAMOTIDINE 10 MG TABLET PO SCH ×2 (10:12→21:36)
[2018-12-28] MEDS: DOCUSATE SODIUM 100 MG CAPSULE (FP) PO SCH ×2 (10:12→21:35)
[2018-12-28] MEDS: ARIPiprazole 2 MG TABLET PO SCH (10:14)
[2018-12-28] MEDS: NICOTINE 7 MG/24 HOURS TOPICAL PATCH TD SCH (11:00)
[2018-12-28] MEDS: HYDROCORTISONE 2.5% LOTION - 1 BOTTLE TP SCH ×2 (11:00→21:35)
[2018-12-28] MEDS: hydrOXYzine PAMOATE 25 MG CAPSULE (FP) PO PRN (17:07)
[2018-12-28] MEDS: THIAMINE HCL 100 MG TABLET (FP) PO SCH (21:33)
[2018-12-28] MEDS: INSULIN (LEVEMIR) 100 UNITS/ML UNITS SQ SCH (21:34)
[2018-12-28] MEDS: traZODone HCL 50 MG TABLET (FP) PO SCH (21:35)
[2018-12-29] MEDS: metFORMIN HCL 500 MG TABLET (FP) PO SCH ×2 (07:01→17:06)
[2018-12-29] MEDS: INSULIN (NOVOLOG) ASPART 100 UNITS/ML 10ML VIAL SQ SCH ×3 (07:43→17:08)
[2018-12-29] MEDS ORDERED: PT OWN MED DRAWER 7, Y5N ONE ×2 (09:19→16:57)
[2018-12-29] MEDS: BICTEGRAV/EMTRICIT/TENOFOV (BIKTARVY) 50-200-25 MG TABLET PO SCH (10:12)
[2018-12-29] MEDS: DOCUSATE SODIUM 100 MG CAPSULE (FP) PO SCH ×2 (10:12→21:29)
[2018-12-29] MEDS: ARIPiprazole 2 MG TABLET PO SCH (10:13)
[2018-12-29] MEDS: FAMOTIDINE 10 MG TABLET PO SCH ×2 (10:13→21:31)
[2018-12-29] MEDS: HYDROCORTISONE 2.5% LOTION - 1 BOTTLE TP SCH ×2 (10:13→21:30)
[2018-12-29] MEDS: NICOTINE 7 MG/24 HOURS TOPICAL PATCH TD SCH (10:13)
[2018-12-29] MEDS: PRENATAL VITAMINS W/ FOLIC ACID TABLET (FP) PO SCH (10:13)
[2018-12-29] MEDS ORDERED: INSULIN (NOVOLOG) ASPART 100 UNITS/ML 10ML VIAL ONE (17:05)
[2018-12-29] MEDS: traZODone HCL 50 MG TABLET (FP) PO SCH (21:29)
[2018-12-29] MEDS: THIAMINE HCL 100 MG TABLET (FP) PO SCH (21:29)
[2018-12-29] MEDS: INSULIN (LEVEMIR) 100 UNITS/ML UNITS SQ SCH (21:29)
[2018-12-30] MEDS: metFORMIN HCL 500 MG TABLET (FP) PO SCH ×2 (06:49→17:13)
[2018-12-30] MEDS: INSULIN (NOVOLOG) ASPART 100 UNITS/ML 10ML VIAL SQ SCH ×3 (08:02→17:13)
[2018-12-30] MEDS ORDERED: PT OWN MED DRAWER 7, Y5N ONE (08:59)
[2018-12-30] MEDS: PRENATAL VITAMINS W/ FOLIC ACID TABLET (FP) PO SCH (10:38)
[2018-12-30] MEDS: NICOTINE 7 MG/24 HOURS TOPICAL PATCH TD SCH (10:38)
[2018-12-30] MEDS: DOCUSATE SODIUM 100 MG CAPSULE (FP) PO SCH ×2 (10:38→21:32)
[2018-12-30] MEDS: FAMOTIDINE 10 MG TABLET PO SCH ×2 (10:39→21:33)
[2018-12-30] MEDS: BICTEGRAV/EMTRICIT/TENOFOV (BIKTARVY) 50-200-25 MG TABLET PO SCH (10:40)
[2018-12-30] MEDS: hydrOXYzine PAMOATE 25 MG CAPSULE (FP) PO PRN (10:40)
[2018-12-30] MEDS: ARIPiprazole 2 MG TABLET PO SCH (10:40)
[2018-12-30] MEDS: HYDROCORTISONE 2.5% LOTION - 1 BOTTLE TP SCH ×2 (10:40→21:34)
[2018-12-30] MEDS ORDERED: INSULIN (NOVOLOG) ASPART 100 UNITS/ML 10ML VIAL ONE (11:49)
[2018-12-30] MEDS: INSULIN (LEVEMIR) 100 UNITS/ML UNITS SQ SCH (21:31)
[2018-12-30] MEDS: THIAMINE HCL 100 MG TABLET (FP) PO SCH (21:33)
[2018-12-30] MEDS: traZODone HCL 50 MG TABLET (FP) PO SCH (21:33)
[2018-12-31] MEDS: INSULIN (NOVOLOG) ASPART 100 UNITS/ML 10ML VIAL SQ SCH ×3 (06:21→17:18)
[2018-12-31] MEDS: metFORMIN HCL 500 MG TABLET (FP) PO SCH ×2 (06:21→17:18)
[2018-12-31] MEDS: ARIPiprazole 2 MG TABLET PO SCH (10:10)
[2018-12-31] MEDS: DOCUSATE SODIUM 100 MG CAPSULE (FP) PO SCH ×2 (10:11→21:22)
[2018-12-31] MEDS: FAMOTIDINE 10 MG TABLET PO SCH ×2 (10:11→21:23)
[2018-12-31] MEDS: PRENATAL VITAMINS W/ FOLIC ACID TABLET (FP) PO SCH (10:11)
[2018-12-31] MEDS: BICTEGRAV/EMTRICIT/TENOFOV (BIKTARVY) 50-200-25 MG TABLET PO SCH (10:11)
[2018-12-31] MEDS: HYDROCORTISONE 2.5% LOTION - 1 BOTTLE TP SCH ×2 (10:12→21:22)
[2018-12-31] MEDS: NICOTINE 7 MG/24 HOURS TOPICAL PATCH TD SCH (10:12)
--- NOTE | 2018-12-31 12:08 | PN ---
[facility] Progress Note Note: Patient is scheduled for discharge tomorrow. Scripts for 30 days supply of medications(Abilify 2 mg/day, Trazadone 150 mg/hs) will be electronically transmitted to [facility] at [address] [place], [place] [id number]
[2018-12-31] MEDS: THIAMINE HCL 100 MG TABLET (FP) PO SCH (21:21)
[2018-12-31] MEDS: traZODone HCL 50 MG TABLET (FP) PO SCH (21:23)
[2018-12-31] MEDS: INSULIN (LEVEMIR) 100 UNITS/ML UNITS SQ SCH (21:24)
[2019-01-01] MEDS: COLLOIDAL OATMEAL 1 BAR EACH TP PRN (06:25)
[2019-01-01] MEDS: metFORMIN HCL 500 MG TABLET (FP) PO SCH (07:31)
[2019-01-01] MEDS: INSULIN (NOVOLOG) ASPART 100 UNITS/ML 10ML VIAL SQ SCH ×2 (07:33→11:05)
[2019-01-01] MEDS ORDERED: INSULIN (NOVOLOG) ASPART 100 UNITS/ML 10ML VIAL ONE (07:39)
[2019-01-01 07:45] VITALS: BP 106/70; PULSE 87; TEMP 97.6
[2019-01-01] MEDS ORDERED: PT OWN MED DRAWER 7, Y5N ONE (08:34)
--- NOTE | 2019-01-01 08:40 | DS ---
[facility] Rehab Discharge Summary - [facility] Rehab Discharge Summary Admission Date: 12/18/18 Discharge Date: 01/01/19 - History Present History: Cannabis dependence, Cocaine dependence Additional Comments: Pt is a 43 y/o female admitted to rehab with a hx of SHAY, completed treatment and discharged today. Pt has been referred to [facility] for CD aftercare and will follow up with her primary care at [place], [place] with Dr. Prakash for medical management. Pt is homeless and has been referred to [facility] for housing needs. Pertinent Past History: HIV+ GERD Type 2 DM Mood disorder - Discharge Physical Exam Vital Signs: Vital Signs Temperature 97.6 F 01/01/19 07:44 Pulse Rate 87 01/01/19 07:44 Respiratory Rate 18 01/01/19 07:44 Blood Pressure 106/70 01/01/19 07:44 O2 Sat by Pulse Oximetry (%) Alert o x 3 nad oob ambulating with steady gait cardiac:s1 s2,rrr lungs:cta,yamini. abdomen:soft,+bs,nt,nd extremities/skin:no edema,full ROM,skin intact. Pertinent Admission Physical Exam Findings: Laboratory Tests 12/18/18 12/18/18 12/18/18 09:40 10:00 10:00 WBC 7.2 RBC 4.64 Hgb 13.3 Hct 41.4 MCV 89.2 MCH 28.7 MCHC 32.2 RDW 13.7 Plt Count 341 MPV 9.0 Sodium 132 L Potassium 4.2 Chloride 98 Carbon Dioxide 27 Anion Gap 7 L BUN 16.3 Creatinine 1.2 Est GFR (CKD-EPI)AfAm 64.10 Est GFR (CKD-EPI)NonAf 55.31 POC Glucometer Random Glucose 515 H* Calcium 9.0 Total Bilirubin 0.5 AST 18 ALT 30 Alkaline Phosphatase 109 Total Protein 7.6 Albumin 3.2 L Urine Color Urine Appearance Urine pH Ur Specific [place] Urine Protein Urine Glucose (UA) Urine Ketones Urine Blood Urine Nitrite Urine Bilirubin Urine Urobilinogen Ur Leukocyte Esterase Urine WBC (Auto) Urine RBC (Auto) Urine Casts (Auto) U Epithel Cells (Auto) Urine Bacteria (Auto) POC Urine HCG, Qual Negative RPR Titer 12/18/18 12/18/18 12/18/18 10:00 10:03 11:38 WBC RBC Hgb Hct MCV MCH MCHC RDW Plt Count MPV Sodium Potassium Chloride Carbon Dioxide Anion Gap BUN Creatinine Est GFR (CKD-EPI)AfAm Est GFR (CKD-EPI)NonAf POC Glucometer 539 > 600 Random Glucose Calcium Total Bilirubin AST ALT Alkaline Phosphatase Total Protein Albumin Urine Color Urine Appearance Urine pH Ur Specific [place] Urine Protein Urine Glucose (UA) Urine Ketones Urine Blood Urine Nitrite Urine Bilirubin Urine Urobilinogen Ur Leukocyte Esterase Urine WBC (Auto) Urine RBC (Auto) Urine Casts (Auto) U Epithel Cells (Auto) Urine Bacteria (Auto) POC Urine HCG, Qual RPR Titer Nonreactive 12/18/18 12/18/18 12/19/18 16:38 21:30 07:01 WBC RBC Hgb Hct MCV MCH MCHC RDW Plt Count MPV Sodium Potassium Chloride Carbon Dioxide Anion Gap BUN Creatinine Est GFR (CKD-EPI)AfAm Est GFR (CKD-EPI)NonAf POC Glucometer 91 [phone] Random Glucose Calcium Total Bilirubin AST ALT Alkaline Phosphatase Total Protein Albumin Urine Color Urine Appearance Urine pH Ur Specific [place] Urine Protein Urine Glucose (UA) Urine Ketones Urine Blood Urine Nitrite Urine Bilirubin Urine Urobilinogen Ur Leukocyte Esterase Urine WBC (Auto) Urine RBC (Auto) Urine Casts (Auto) U Epithel Cells (Auto) Urine Bacteria (Auto) POC Urine HCG, Qual RPR Titer 12/19/18 12/19/18 12/19/18 09:00 11:55 16:43 WBC RBC Hgb Hct MCV MCH MCHC RDW Plt Count MPV Sodium Potassium Chloride Carbon Dioxide Anion Gap BUN Creatinine Est GFR (CKD-EPI)AfAm Est GFR (CKD-EPI)NonAf POC Glucometer [phone] Random Glucose Calcium Total Bilirubin AST ALT Alkaline Phosphatase Total Protein Albumin Urine Color Dk yellow Urine Appearance Cloudy Urine pH 6.0 Ur Specific [place] 1.044 H Urine Protein 2+ H Urine Glucose (UA) 2+ H Urine Ketones Trace H Urine Blood 3+ H Urine Nitrite Negative Urine Bilirubin Negative Urine Urobilinogen 1.0 Ur Leukocyte Esterase Negative Urine WBC (Auto) 3 Urine RBC (Auto) 1 Urine Casts (Auto) 14 U Epithel Cells (Auto) 10.9 Urine Bacteria (Auto) 99.6 POC Urine HCG, Qual RPR Titer 12/19/18 12/20/18 12/20/18 21:27 06:33 11:17 WBC RBC Hgb Hct MCV MCH MCHC RDW Plt Count MPV Sodium Potassium Chloride Carbon Dioxide Anion Gap BUN Creatinine Est GFR (CKD-EPI)AfAm Est GFR (CKD-EPI)NonAf POC Glucometer [phone] Random Glucose Calcium Total Bilirubin AST ALT Alkaline Phosphatase Total Protein Albumin Urine Color Urine Appearance Urine pH Ur Specific [place] Urine Protein Urine Glucose (UA) Urine Ketones Urine Blood Urine Nitrite Urine Bilirubin Urine Urobilinogen Ur Leukocyte Esterase Urine WBC (Auto) Urine RBC (Auto) Urine Casts (Auto) U Epithel Cells (Auto) Urine Bacteria (Auto) POC Urine HCG, Qual RPR Titer 12/20/18 12/20/18 12/21/18 16:37 21:38 07:23 WBC RBC Hgb Hct MCV MCH MCHC RDW Plt Count MPV Sodium Potassium Chloride Carbon Dioxide Anion Gap BUN Creatinine Est GFR (CKD-EPI)AfAm Est GFR (CKD-EPI)NonAf POC Glucometer [phone] Random Glucose Calcium Total Bilirubin AST ALT Alkaline Phosphatase Total Protein Albumin Urine Color Urine Appearance Urine pH Ur Specific [place] Urine Protein Urine Glucose (UA) Urine Ketones Urine Blood Urine Nitrite Urine Bilirubin Urine Urobilinogen Ur Leukocyte Esterase Urine WBC (Auto) Urine RBC (Auto) Urine Casts (Auto) U Epithel Cells (Auto) Urine Bacteria (Auto) POC Urine HCG, Qual RPR Titer 12/21/18 12/21/18 12/21/18 11:49 12:50 16:46 WBC RBC Hgb Hct MCV MCH MCHC RDW Plt Count MPV Sodium Potassium Chloride Carbon Dioxide Anion Gap BUN Creatinine Est GFR (CKD-EPI)AfAm Est GFR (CKD-EPI)NonAf POC Glucometer [phone] Random Glucose Calcium Total Bilirubin AST ALT Alkaline Phosphatase Total Protein Albumin Urine Color Yellow Urine Appearance Clear Urine pH >= 9.0 H D Ur Specific [place] 1.039 H Urine Protein 1+ H Urine Glucose (UA) 2+ H Urine Ketones Trace H Urine Blood Negative Urine Nitrite Negative Urine Bilirubin Negative Urine Urobilinogen 1.0 Ur Leukocyte Esterase Negative Urine WBC (Auto) 4 Urine RBC (Auto) 3 Urine Casts (Auto) 3 U Epithel Cells (Auto) 7.3 Urine Bacteria (Auto) 191.0 POC Urine HCG, Qual RPR Titer 12/21/18 12/22/18 12/22/18 21:08 06:25 11:54 WBC RBC Hgb Hct MCV MCH MCHC RDW Plt Count MPV Sodium Potassium Chloride Carbon Dioxide Anion Gap BUN Creatinine Est GFR (CKD-EPI)AfAm Est GFR (CKD-EPI)NonAf POC Glucometer [phone] Random Glucose Calcium Total Bilirubin AST ALT Alkaline Phosphatase Total Protein Albumin Urine Color Urine Appearance Urine pH Ur Specific [place] Urine Protein Urine Glucose (UA) Urine Ketones Urine Blood Urine Nitrite Urine Bilirubin Urine Urobilinogen Ur Leukocyte Esterase Urine WBC (Auto) Urine RBC (Auto) Urine Casts (Auto) U Epithel Cells (Auto) Urine Bacteria (Auto) POC Urine HCG, Qual RPR Titer 12/22/18 12/22/18 12/23/18 16:39 21:26 07:00 WBC RBC Hgb Hct MCV MCH MCHC RDW Plt Count MPV Sodium Potassium Chloride Carbon Dioxide Anion Gap BUN Creatinine Est GFR (CKD-EPI)AfAm Est GFR (CKD-EPI)NonAf POC Glucometer [phone] Random Glucose Calcium Total Bilirubin AST ALT Alkaline Phosphatase Total Protein Albumin Urine Color Urine Appearance Urine pH Ur Specific [place] Urine Protein Urine Glucose (UA) Urine Ketones Urine Blood Urine Nitrite Urine Bilirubin Urine Urobilinogen Ur Leukocyte Esterase Urine WBC (Auto) Urine RBC (Auto) Urine Casts (Auto) U Epithel Cells (Auto) Urine Bacteria (Auto) POC Urine HCG, Qual RPR Titer 12/23/18 12/23/18 12/23/18 11:54 16:48 21:09 WBC RBC Hgb Hct MCV MCH MCHC RDW Plt Count MPV Sodium Potassium Chloride Carbon Dioxide Anion Gap BUN Creatinine Est GFR (CKD-EPI)AfAm Est GFR (CKD-EPI)NonAf POC Glucometer [phone] Random Glucose Calcium Total Bilirubin AST ALT Alkaline Phosphatase Total Protein Albumin Urine Color Urine Appearance Urine pH Ur Specific [place] Urine Protein Urine Glucose (UA) Urine Ketones Urine Blood Urine Nitrite Urine Bilirubin Urine Urobilinogen Ur Leukocyte Esterase Urine WBC (Auto) Urine RBC (Auto) Urine Casts (Auto) U Epithel Cells (Auto) Urine Bacteria (Auto) POC Urine HCG, Qual RPR Titer 12/24/18 12/24/18 12/24/18 06:54 11:26 16:33 WBC RBC Hgb Hct MCV MCH MCHC RDW Plt Count MPV Sodium Potassium Chloride Carbon Dioxide Anion Gap BUN Creatinine Est GFR (CKD-EPI)AfAm Est GFR (CKD-EPI)NonAf POC Glucometer [phone] Random Glucose Calcium Total Bilirubin AST ALT Alkaline Phosphatase Total Protein Albumin Urine Color Urine Appearance Urine pH Ur Specific [place] Urine Protein Urine Glucose (UA) Urine Ketones Urine Blood Urine Nitrite Urine Bilirubin Urine Urobilinogen Ur Leukocyte Esterase Urine WBC (Auto) Urine RBC (Auto) Urine Casts (Auto) U Epithel Cells (Auto) Urine Bacteria (Auto) POC Urine HCG, Qual RPR Titer 12/24/18 12/25/18 12/25/18 21:13 06:57 11:36 WBC RBC Hgb Hct MCV MCH MCHC RDW Plt Count MPV Sodium Potassium Chloride Carbon Dioxide Anion Gap BUN Creatinine Est GFR (CKD-EPI)AfAm Est GFR (CKD-EPI)NonAf POC Glucometer [phone] Random Glucose Calcium Total Bilirubin AST ALT Alkaline Phosphatase Total Protein Albumin Urine Color Urine Appearance Urine pH Ur Specific [place] Urine Protein Urine Glucose (UA) Urine Ketones Urine Blood Urine Nitrite Urine Bilirubin Urine Urobilinogen Ur Leukocyte Esterase Urine WBC (Auto) Urine RBC (Auto) Urine Casts (Auto) U Epithel Cells (Auto) Urine Bacteria (Auto) POC Urine HCG, Qual RPR Titer 12/25/18 12/25/18 12/26/18 16:44 21:09 06:36 WBC RBC Hgb Hct MCV MCH MCHC RDW Plt Count MPV Sodium Potassium Chloride Carbon Dioxide Anion Gap BUN Creatinine Est GFR (CKD-EPI)AfAm Est GFR (CKD-EPI)NonAf POC Glucometer [phone] Random Glucose Calcium Total Bilirubin AST ALT Alkaline Phosphatase Total Protein Albumin Urine Color Urine Appearance Urine pH Ur Specific [place] Urine Protein Urine Glucose (UA) Urine Ketones Urine Blood Urine Nitrite Urine Bilirubin Urine Urobilinogen Ur Leukocyte Esterase Urine WBC (Auto) Urine RBC (Auto) Urine Casts (Auto) U Epithel Cells (Auto) Urine Bacteria (Auto) POC Urine HCG, Qual RPR Titer 12/26/18 12/26/18 12/26/18 11:49 17:23 21:21 WBC RBC Hgb Hct MCV MCH MCHC RDW Plt Count MPV Sodium Potassium Chloride Carbon Dioxide Anion Gap BUN Creatinine Est GFR (CKD-EPI)AfAm Est GFR (CKD-EPI)NonAf POC Glucometer [phone] Random Glucose Calcium Total Bilirubin AST ALT Alkaline Phosphatase Total Protein Albumin Urine Color Urine Appearance Urine pH Ur Specific [place] Urine Protein Urine Glucose (UA) Urine Ketones Urine Blood Urine Nitrite Urine Bilirubin Urine Urobilinogen Ur Leukocyte Esterase Urine WBC (Auto) Urine RBC (Auto) Urine Casts (Auto) U Epithel Cells (Auto) Urine Bacteria (Auto) POC Urine HCG, Qual RPR Titer 12/27/18 12/27/18 12/27/18 06:53 11:35 16:47 WBC RBC Hgb Hct MCV MCH MCHC RDW Plt Count MPV Sodium Potassium Chloride Carbon Dioxide Anion Gap BUN Creatinine Est GFR (CKD-EPI)AfAm Est GFR (CKD-EPI)NonAf POC Glucometer 110 160 201 Random Glucose Calcium Total Bilirubin AST ALT Alkaline Phosphatase Total Protein Albumin Urine Color Urine Appearance Urine pH Ur Specific [place] Urine Protein Urine Glucose (UA) Urine Ketones Urine Blood Urine Nitrite Urine Bilirubin Urine Urobilinogen Ur Leukocyte Esterase Urine WBC (Auto) Urine RBC (Auto) Urine Casts (Auto) U Epithel Cells (Auto) Urine Bacteria (Auto) POC Urine HCG, Qual RPR Titer 12/27/18 12/28/18 12/28/18 21:41 06:42 11:54 WBC RBC Hgb Hct MCV MCH MCHC RDW Plt Count MPV Sodium Potassium Chloride Carbon Dioxide Anion Gap BUN Creatinine Est GFR (CKD-EPI)AfAm Est GFR (CKD-EPI)NonAf POC Glucometer [phone] Random Glucose Calcium Total Bilirubin AST ALT Alkaline Phosphatase Total Protein Albumin Urine Color Urine Appearance Urine pH Ur Specific [place] Urine Protein Urine Glucose (UA) Urine Ketones Urine Blood Urine Nitrite Urine Bilirubin Urine Urobilinogen Ur Leukocyte Esterase Urine WBC (Auto) Urine RBC (Auto) Urine Casts (Auto) U Epithel Cells (Auto) Urine Bacteria (Auto) POC Urine HCG, Qual RPR Titer 12/28/18 12/28/18 12/29/18 17:03 21:34 07:00 WBC RBC Hgb Hct MCV MCH MCHC RDW Plt Count MPV Sodium Potassium Chloride Carbon Dioxide Anion Gap BUN Creatinine Est GFR (CKD-EPI)AfAm Est GFR (CKD-EPI)NonAf POC Glucometer [phone] Random Glucose Calcium Total Bilirubin AST ALT Alkaline Phosphatase Total Protein Albumin Urine Color Urine Appearance Urine pH Ur Specific [place] Urine Protein Urine Glucose (UA) Urine Ketones Urine Blood Urine Nitrite Urine Bilirubin Urine Urobilinogen Ur Leukocyte Esterase Urine WBC (Auto) Urine RBC (Auto) Urine Casts (Auto) U Epithel Cells (Auto) Urine Bacteria (Auto) POC Urine HCG, Qual RPR Titer 12/29/18 12/29/18 12/29/18 11:53 17:05 21:31 WBC RBC Hgb Hct MCV MCH MCHC RDW Plt Count MPV Sodium Potassium Chloride Carbon Dioxide Anion Gap BUN Creatinine Est GFR (CKD-EPI)AfAm Est GFR (CKD-EPI)NonAf POC Glucometer [phone] Random Glucose Calcium Total Bilirubin AST ALT Alkaline Phosphatase Total Protein Albumin Urine Color Urine Appearance Urine pH Ur Specific [place] Urine Protein Urine Glucose (UA) Urine Ketones Urine Blood Urine Nitrite Urine Bilirubin Urine Urobilinogen Ur Leukocyte Esterase Urine WBC (Auto) Urine RBC (Auto) Urine Casts (Auto) U Epithel Cells (Auto) Urine Bacteria (Auto) POC Urine HCG, Qual RPR Titer 12/30/18 12/30/18 12/30/18 06:48 11:47 17:10 WBC RBC Hgb Hct MCV MCH MCHC RDW Plt Count MPV Sodium Potassium Chloride Carbon Dioxide Anion Gap BUN Creatinine Est GFR (CKD-EPI)AfAm Est GFR (CKD-EPI)NonAf POC Glucometer 92 [phone] Random Glucose Calcium Total Bilirubin AST ALT Alkaline Phosphatase Total Protein Albumin Urine Color Urine Appearance Urine pH Ur Specific [place] Urine Protein Urine Glucose (UA) Urine Ketones Urine Blood Urine Nitrite Urine Bilirubin Urine Urobilinogen Ur Leukocyte Esterase Urine WBC (Auto) Urine RBC (Auto) Urine Casts (Auto) U Epithel Cells (Auto) Urine Bacteria (Auto) POC Urine HCG, Qual RPR Titer 12/30/18 12/31/18 12/31/18 21:27 06:20 11:37 WBC RBC Hgb Hct MCV MCH MCHC RDW Plt Count MPV Sodium Potassium Chloride Carbon Dioxide Anion Gap BUN Creatinine Est GFR (CKD-EPI)AfAm Est GFR (CKD-EPI)NonAf POC Glucometer [phone] Random Glucose Calcium Total Bilirubin AST ALT Alkaline Phosphatase Total Protein Albumin Urine Color Urine Appearance Urine pH Ur Specific [place] Urine Protein Urine Glucose (UA) Urine Ketones Urine Blood Urine Nitrite Urine Bilirubin Urine Urobilinogen Ur Leukocyte Esterase Urine WBC (Auto) Urine RBC (Auto) Urine Casts (Auto) U Epithel Cells (Auto) Urine Bacteria (Auto) POC Urine HCG, Qual RPR Titer 12/31/18 12/31/18 01/01/19 16:36 21:23 07:32 WBC RBC Hgb Hct MCV MCH MCHC RDW Plt Count MPV Sodium Potassium Chloride Carbon Dioxide Anion Gap BUN Creatinine Est GFR (CKD-EPI)AfAm Est GFR (CKD-EPI)NonAf POC Glucometer [phone] Random Glucose Calcium Total Bilirubin AST ALT Alkaline Phosphatase Total Protein Albumin Urine Color Urine Appearance Urine pH Ur Specific [place] Urine Protein Urine Glucose (UA) Urine Ketones Urine Blood Urine Nitrite Urine Bilirubin Urine Urobilinogen Ur Leukocyte Esterase Urine WBC (Auto) Urine RBC (Auto) Urine Casts (Auto) U Epithel Cells (Auto) Urine Bacteria (Auto) POC Urine HCG, Qual RPR Titer - Treatment Discharge Condition: Discharge condition good Hospital Course: Rehabilitated safely and responded well. CD aftercare referral accepted to [facility] @ [place], [place]. - Medication Discharge Medications: Ambulatory Orders Aripiprazole [Abilify] 5 mg PO DAILY 12/18/18 Hydrocortisone 2.5% Lotion [Hytone 2.5% Lotion -] 1 applic TP BID 12/18/18 Insulin Lispro [Admelog Solostar] 100 unit SQ ASDIR 12/18/18 Aripiprazole [Abilify -] 2 mg PO DAILY #30 tablet 12/31/18 Trazodone HCl 150 mg PO HS #30 tablet 12/31/18 Bictegrav/Emtricit/Tenofov Ala [Biktarvy 50-200-25 mg Tablet] 1 each PO DAILY # 30 tablet 01/01/19 Famotidine [Acid Utility Porter] 10 mg PO BID 14 Days #28 tablet 01/01/19 Insulin Glargine,Hum.rec.anlog [Basaglar Kwikpen U-100] 25 unit SQ HS #1 insuln.pen 01/01/19 Metformin HCl [Glucophage] 1,000 mg PO BID #60 tablet 01/01/19 Naproxen [Naprosyn -] 250 mg PO BID PRN 14 Days tablet 01/01/19 - Medication-Assisted Treatment (MAT) Medication-Assisted Treatment (MAT): No - Discharge Instructions Diet, activity, other medical instructions: Diet:NCS Activity: oob ad ted Other medical instructions:follow up with your primary care doctor, Dr. Prakash at [facility] 1-2 weeks after discharge. Follow up with CD aftercare as recommended and scheduled. - Follow-up Referral Minutes to complete discharge: 25 - AMA Did Patient Leave Against Medical Advice: No Additional Comments: Courtesy Rx sent to pt's pharmacy to medicinal plant pick[facility] after discharge.
[2019-01-01] MEDS: PRENATAL VITAMINS W/ FOLIC ACID TABLET (FP) PO SCH (09:24)
[2019-01-01] MEDS: FAMOTIDINE 10 MG TABLET PO SCH (09:24)
[2019-01-01] MEDS: DOCUSATE SODIUM 100 MG CAPSULE (FP) PO SCH (09:26)
[2019-01-01] MEDS: ARIPiprazole 2 MG TABLET PO SCH (09:26)
[2019-01-01] MEDS: HYDROCORTISONE 2.5% LOTION - 1 BOTTLE TP SCH (09:26)
[2019-01-01] MEDS: BICTEGRAV/EMTRICIT/TENOFOV (BIKTARVY) 50-200-25 MG TABLET PO SCH (09:26)
[2019-01-01] MEDS: NICOTINE 7 MG/24 HOURS TOPICAL PATCH TD SCH (09:26)
== END 2019-01-01 11:44 | disposition home or self-care (01) | DRG 772 ==
LOC: YASAS 08:29 → Y3E 10:02
PROVIDERS: ADMIT Neuromusculoskeletal Medicine & OMM; ATTEND Neuromusculoskeletal Medicine & OMM
PROC: HZ40ZZZ Group Counseling for Substance Abuse Treatment, Cognitive (ICD-10-PCS; principal; 2018-12-18)
DX: F10.20 Alcohol dependence, uncomplicated (principal); F14.20 Cocaine dependence, uncomplicated; F12.20 Cannabis dependence, uncomplicated; F17.210 Nicotine dependence, cigarettes, uncomplicated; F19.282 Other psychoactive substance dependence with psychoactive substance-induced sleep disorder; F19.24 Other psychoactive substance dependence with psychoactive substance-induced mood disorder; F31.9 Bipolar disorder, unspecified; F39 Unspecified mood [affective] disorder; F41.9 Anxiety disorder, unspecified; F43.10 Post-traumatic stress disorder, unspecified; Z21 Asymptomatic human immunodeficiency virus [HIV] infection status; E11.9 Type 2 diabetes mellitus without complications; Z79.4 Long term (current) use of insulin; K21.9 Gastro-esophageal reflux disease without esophagitis; R31.9 Hematuria, unspecified; Z88.2 Allergy status to sulfonamides; Z59.0 Homelessness
CPT/HCPCS: 36415; 80053; 81003; 81025; 82962; 85027; 86593

== ENCOUNTER 2021-08-30 17:12 | Inpatient (IN) | payer OTHER ==
[2021-08-30] MEDS ORDERED: BISMUTH SUBSALICYLATE 524 MG/30 ML PO PRN (19:08)
[2021-08-30] MEDS ORDERED: ONDANSETRON *ODT* 4 MG TABLET SL PRN (19:08)
[2021-08-30] MEDS ORDERED: ACETAMINOPHEN 325 MG TABLET (FP) PO PRN ×2 (19:08)
[2021-08-30] MEDS ORDERED: MAGNESIUM CITRATE 300 ML BOTTLE PO PRN (19:08)
[2021-08-30] MEDS ORDERED: LORazepam 1 MG TABLET PO PRN (19:08)
[2021-08-30] MEDS ORDERED: MAG HYDROX/AL HYDROX/SIMETH 30 ML UNIT-DOSE CUP PO PRN (19:08)
[2021-08-30] MEDS ORDERED: DICYCLOMINE HCL 10 MG CAPSULE PO PRN (19:08)
[2021-08-30] MEDS ORDERED: IBUPROFEN 400 MG TABLET (FP) PO PRN (19:08)
[2021-08-30] MEDS ORDERED: LOPERAMIDE HCL 2 MG CAPSULE PO PRN (19:08)
[2021-08-30] MEDS ORDERED: BENZOCAINE/MENTHOL (CHLORASEPTIC ) LOZENGE MM PRN (19:08)
[2021-08-30] MEDS ORDERED: NICOTINE 10 MG CARTRIDGE (INHALER) IH PRN (19:08)
[2021-08-30] MEDS ORDERED: MAGNESIUM HYDROX 2400MG/30ML ORAL SUSPENSION 30 ML CUP PO PRN (19:08)
[2021-08-30] MEDS: hydrOXYzine PAMOATE 25 MG CAPSULE (FP) PO SCH (22:40)
[2021-08-30] MEDS: MELATONIN 5 MG TABLETS PO SCH (22:40)
[2021-08-30] MEDS: THIAMINE HCL 100 MG TABLET (FP) PO SCH (22:41)
[2021-08-30] MEDS: LORazepam 2 MG TABLET PO SCH (23:46)
[2021-08-31] MEDS: LORazepam 2 MG TABLET PO SCH ×4 (05:32→22:40)
[2021-08-31] MEDS: hydrOXYzine PAMOATE 25 MG CAPSULE (FP) PO SCH ×5 (05:35→22:17)
[2021-08-31] MEDS: INSULIN SLIDING SCALE (NOVOLOG) 1 VIAL SQ SCH ×3 (07:37→17:10)
[2021-08-31] MEDS ORDERED: INSULIN (NOVOLOG) ASPART 100 UNITS/ML 10ML VIAL ONE ×3 (07:45→16:48)
[2021-08-31] MEDS: PRENATAL VITAMINS W/ FOLIC ACID TABLET (FP) PO SCH (10:31)
[2021-08-31] MEDS: NICOTINE 7 MG/24 HOURS TOPICAL PATCH TD SCH (10:31)
[2021-08-31] MEDS: ARIPiprazole 15 MG TABLET PO SCH (12:15)
[2021-08-31] MEDS: BICTEGRAV/EMTRICIT/TENOFOV (BIKTARVY) 50-200-25 MG TABLET PO SCH (15:50)
[2021-08-31] MEDS: METHOCARBAMOL 500 MG TABLET PO PRN (17:09)
[2021-08-31] MEDS: traZODone HCL 100 MG TABLET (FP) PO SCH (22:17)
[2021-08-31] MEDS: MELATONIN 5 MG TABLETS PO SCH (22:17)
[2021-08-31] MEDS: IBUPROFEN 600 MG TABLET (FP) PO PRN (22:17)
[2021-08-31] MEDS: THIAMINE HCL 100 MG TABLET (FP) PO SCH (22:17)
[2021-08-31] MEDS: INSULIN (LEVEMIR) 100 UNITS/ML UNITS SQ SCH (22:23)
[2021-09-01] MEDS: hydrOXYzine PAMOATE 25 MG CAPSULE (FP) PO SCH ×5 (05:42→22:02)
[2021-09-01] MEDS: LORazepam 1 MG TABLET PO SCH ×4 (05:43→22:02)
[2021-09-01] MEDS: INSULIN SLIDING SCALE (NOVOLOG) 1 VIAL SQ SCH ×3 (07:57→17:39)
[2021-09-01] MEDS: BICTEGRAV/EMTRICIT/TENOFOV (BIKTARVY) 50-200-25 MG TABLET PO SCH (08:00)
[2021-09-01] MEDS: PRENATAL VITAMINS W/ FOLIC ACID TABLET (FP) PO SCH (10:06)
[2021-09-01] MEDS: ARIPiprazole 15 MG TABLET PO SCH (10:06)
[2021-09-01] MEDS: NICOTINE 7 MG/24 HOURS TOPICAL PATCH TD SCH (10:10)
[2021-09-01 11:39] LABS: HEMATOCRIT 36.5 % (32.4-45.2); HEMOGLOBIN 11.8 GM/dL (10.7-15.3); MCH 30.6 pg (25.7-33.7); MCHC 32.4 g/dl (32.0-36.0); MEAN CELL VOLUME 94.5 fl (80-96); MEAN PLT VOLUME 9.1 fl (7.5-11.1); PLATELET COUNT 217 10^3/uL (134-434); RBC 3.86 M/mm3 (3.60-5.2); RDW 15.5 % (11.6-15.6); WHITE BLOOD COUNT 4.9 K/mm3 (4.0-10.0)
[2021-09-01] MEDS ORDERED: INSULIN (NOVOLOG) ASPART 100 UNITS/ML 10ML VIAL ONE ×2 (12:07→17:36)
[2021-09-01 13:21] LABS: CHLORIDE 108 mmol/L (98-107); SODIUM 136 mmol/L (136-145)
[2021-09-01 13:23] LABS: CALCIUM 8.6 mg/dL (8.5-10.1)
[2021-09-01 13:24] LABS: ALBUMIN 3.1 g/dl (3.4-5.0); ANION GAP 9 MMOL/L (8-16); BLOOD UREA NITROGEN 18.5 mg/dL (7-18); CO2 20 mmol/L (21-32)
[2021-09-01 13:27] LABS: SGOT/AST 22 U/L (15-37); SGPT/ALT 34 U/L (13-61)
[2021-09-01 13:29] LABS: BILIRUBIN,TOTAL 0.2 mg/dL (0.2-1); TOT PROT 6.8 g/dl (6.4-8.2)
[2021-09-01 13:30] LABS: ALK PHOS 81 U/L (45-117)
[2021-09-01 13:34] LABS: GLUCOSE,RANDOM 424 mg/dL (74-106)
[2021-09-01] MEDS: METHOCARBAMOL 500 MG TABLET PO PRN (17:41)
[2021-09-01] MEDS: IBUPROFEN 600 MG TABLET (FP) PO PRN (17:42)
[2021-09-01] MEDS: MELATONIN 5 MG TABLETS PO SCH (22:01)
[2021-09-01] MEDS: traZODone HCL 100 MG TABLET (FP) PO SCH (22:02)
[2021-09-01] MEDS: THIAMINE HCL 100 MG TABLET (FP) PO SCH (22:02)
[2021-09-01] MEDS: INSULIN (LEVEMIR) 100 UNITS/ML UNITS SQ SCH (22:04)
[2021-09-02] MEDS ORDERED: LORazepam 0.5 MG TABLET PO PRN
[2021-09-02] MEDS: hydrOXYzine PAMOATE 25 MG CAPSULE (FP) PO SCH ×3 (05:43→13:59)
[2021-09-02] MEDS: LORazepam 0.5 MG TABLET PO SCH ×2 (05:44→10:11)
[2021-09-02] MEDS: INSULIN SLIDING SCALE (NOVOLOG) 1 VIAL SQ SCH ×2 (07:12→12:27)
[2021-09-02] MEDS: BICTEGRAV/EMTRICIT/TENOFOV (BIKTARVY) 50-200-25 MG TABLET PO SCH (10:10)
[2021-09-02] MEDS: ARIPiprazole 15 MG TABLET PO SCH (10:10)
[2021-09-02] MEDS: PRENATAL VITAMINS W/ FOLIC ACID TABLET (FP) PO SCH (10:10)
[2021-09-02] MEDS: NICOTINE 7 MG/24 HOURS TOPICAL PATCH TD SCH (10:12)
[2021-09-02 14:10] VITALS: BP 112/71; PULSE 100; TEMP 98.1
[2021-09-02] MEDS ORDERED: metFORMIN HCL 500 MG TABLET (FP) PO SCH (16:30)
[2021-09-03] MEDS ORDERED: LORazepam 0.5 MG TABLET PO ONE (05:00)
== END 2021-09-02 14:00 | disposition home or self-care (01) | DRG 774 ==
LOC: YASAS 17:12 → Y6N 19:45
PROVIDERS: ADMIT Allergy & Immunology; ATTEND Surgery
PROC: HZ2ZZZZ Detoxification Services for Substance Abuse Treatment (ICD-10-PCS; principal; 2021-08-30)
DX: F10.230 Alcohol dependence with withdrawal, uncomplicated (principal); F14.20 Cocaine dependence, uncomplicated; F12.20 Cannabis dependence, uncomplicated; F17.210 Nicotine dependence, cigarettes, uncomplicated; F43.10 Post-traumatic stress disorder, unspecified; F90.9 Attention-deficit hyperactivity disorder, unspecified type; F32.A Depression, unspecified; Z21 Asymptomatic human immunodeficiency virus [HIV] infection status; E10.9 Type 1 diabetes mellitus without complications; Z79.4 Long term (current) use of insulin; K21.9 Gastro-esophageal reflux disease without esophagitis; Z88.2 Allergy status to sulfonamides
CPT/HCPCS: 36415; 80053; 82962; 85027; C9803-CS; U0003; U0005